=== PATIENT | female | born 1940 | race Hispanic/Latino ===

== ENCOUNTER → 2018-01-05 | Outpatient (CLI) | payer OTHER ==
[~2018-01-05] MED LIST: ASPI-555 PO; FURO20TA6 PO; GABA-531 PO; LEVO25TA54 PO; LOSA100T29 PO; METF500T6 PO; METO25TA6 PO; RIVA15TA PO; SIMV40TA5 PO
== END | disposition home or self-care (01) ==
LOC: SHCH 12:30
PROVIDERS: ATTEND Internal Medicine Cardiovascular Disease
DX: I10 Essential (primary) hypertension (principal)
CPT/HCPCS: 93306

== ENCOUNTER → 2018-01-06 | Outpatient (CLI) | payer OTHER ==
[~2018-01-06] MED LIST changes: +REGADENOSON 0.4 MG/5 ML PF SYG IVP ONE; +REGADENOSON 0.4 MG/5 ML PF SYG IVP SCH
== END | disposition home or self-care (01) ==
LOC: SHCH 07:57 → EDUNIT# 08:20
PROVIDERS: ATTEND Internal Medicine Cardiovascular Disease
DX: I20.9 Angina pectoris, unspecified (principal)
CPT/HCPCS: 78452; 93017; 96374; A9500 ×2; J2785 ×2

== ENCOUNTER 2018-01-12 05:51 | Day surgery (SDC) | payer OTHER ==
[2018-01-09 08:30] VITALS: BP 140/66
[2018-01-09 08:36] LABS: BASOPHILS % (AUTO) 1.1 % (0.0-5.0); EOSINOPHILS % (AUTO) 2.3 % (0.0-8.0); HEMATOCRIT 40.3 % (36-48); MEAN CORPUSCULAR HEMOGLOBIN 28.2 pg (27.0-33.0); MEAN CORPUSCULAR HGB CONC 33.3 g/dL (32.0-36.0); MEAN CORPUSCULAR VOLUME 84.8 fL (79-99); MONOCYTES % (AUTO) 11.2 % (3.0-13.0); NEUTROPHILS % (AUTO) 43.4 % (40.0-77.0); PLATELET COUNT (AUTO) 319 K/uL (130-400); RED BLOOD CELL COUNT(AUTO) 4.75 MIL/uL (4.00-5.50); RED CELL DISTRIBUTION WIDTH 14.2 % (11.0-15.5); WHITE BLOOD COUNT (AUTO) 7.1 K/uL (4.8-10.8)
[2018-01-09 08:41] LABS: APPEARANCE,URINE Cloudy (CLEAR); BILIRUBIN,URINE Negative (NEGATIVE); COLOR,URINE Yellow (YELLOW); GLUCOSE, URINE (UA) Negative (NEGATIVE); KETONES,URINE Negative (NEGATIVE); LEUKOCYTE ESTERASE ,URINE Large (NEGATIVE); NITRATE,URINE Negative (NEGATIVE); OCCULT BLOOD,URINE Trace (NEGATIVE); PH,URINE 7.5 (5.0-8.0); PROTEIN,URINE Trace (NEGATIVE)
[2018-01-09 08:44] LABS: CREATININE 0.9 mg/dL (0.5-1.5); POTASSIUM 4.5 mmol/L (3.5-5.1)
[2018-01-09 08:49] LABS: INR 1.11 (0.85-1.15); PARTIAL THROMBOPLASTIN TIME 31.8 SEC (26.3-35.5); PROTHROMBIN TIME 11.6 SEC (9.6-11.6)
[2018-01-09 09:13] LABS: BACTERIA,URINE Rare /HPF (None Seen); SQUAMOUS EPITHELIAL CELL,UR 0-2 /HPF (0-2); WBC,URINE >100 /HPF (0-1)
[~2018-01-12] VITALS: Ht 151.1 cm; Wt 63.7 kg
[2018-01-12] VITALS (8 sets, daily range): BP systolic 125–147; BP diastolic 56–71
[~2018-01-12 05:51] MED LIST changes: -REGADENOSON 0.4 MG/5 ML PF SYG IVP ONE; -REGADENOSON 0.4 MG/5 ML PF SYG IVP SCH
[2018-01-12] MEDS ORDERED: CEFTRIAXONE SODIUM 1 GM IV SCH (06:00)
[2018-01-12] MEDS ORDERED: SODIUM CHLORIDE 0.9% 1000ML 1,000 ML IV ONE (06:27)
[2018-01-12] MEDS ORDERED: ISOVUE-370 50ML VIAL IV ONE (10:15)
[2018-01-12] MEDS ORDERED: LIDOCAINE HCL 2% 20ML ONE (10:15)
[2018-01-12] MEDS ORDERED: IOPAMIDOL-370 100 ML VIAL IV ONE (10:15)
[2018-01-12] MEDS ORDERED: NITROGLYCERIN 5 MG/ML 10 ML VIAL IV ONE (10:15)
[2018-01-12] MEDS ORDERED: MEPERIDINE-PF 25 MG/ML SYG ONE (10:30)
[2018-01-12] MEDS ORDERED: MIDAZOLAM HCL 1 MG/ML 2ML VIAL ONE ×2 (10:30→11:26)
[2018-01-12] MEDS ORDERED: BUPIVACAINE/PF 0.25% 30ML VIAL IJ ONE (10:30)
[2018-01-12] MEDS ORDERED: CEFAZOLIN 1GM / D5W 50ML 150 ML ONE (10:30)
[2018-01-12] MEDS ORDERED: LIDOCAINE HCL 1% MDV 50ML VIAL ONE (10:31)
[2018-01-12] MEDS ORDERED: FENTANYL CITRATE PF 50 MCG/1 ML 2ML VIAL ONE (11:26)
[2018-01-12] MEDS ORDERED: SODIUM CHLORIDE 0.9% 1000ML 1,000 ML IV SCH (11:59)
[2018-01-12] MEDS ORDERED: NITROGLYCERIN 0.4 MG SL TAB SL PRN (12:00)
[2018-01-12] MEDS ORDERED: GLUCAGON 1MG KIT 1 MG ML IM PRN (12:00)
[2018-01-12] MEDS ORDERED: DEXTROSE 50%-WATER 50 ML DISP.SYRIN IV PRN (12:00)
[2018-01-12] MEDS ORDERED: METOPROLOL TARTRATE 1 MG/ML 5ML VIAL IV PRN (12:00)
[2018-01-12] MEDS ORDERED: INSULIN HUMULIN R 100 UNIT/ML 3ML SQ SCH (16:30)
== END 2018-01-12 16:08 | disposition home or self-care (01) ==
LOC: DAH 05:51
PROVIDERS: ATTEND Internal Medicine Cardiovascular Disease
DX: I25.119 Atherosclerotic heart disease of native coronary artery with unspecified angina pectoris (principal); I49.5 Sick sinus syndrome; Z79.01 Long term (current) use of anticoagulants; I11.0 Hypertensive heart disease with heart failure; I50.42 Chronic combined systolic (congestive) and diastolic (congestive) heart failure; Z86.73 Personal history of transient ischemic attack (TIA), and cerebral infarction without residual deficits; Z98.890 Other specified postprocedural states; Z90.710 Acquired absence of both cervix and uterus; Z95.0 Presence of cardiac pacemaker; I25.5 Ischemic cardiomyopathy; Z88.8 Allergy status to other drugs, medicaments and biological substances
CPT/HCPCS: 36415; 71045; 80048; 81001; 82948 ×2; 85025; 85610; 85730; 93005; 93458; A4606; C1760; C1894 ×2; J0690; J0696; J1644; J2175; J2250 ×2; J3010; J3490 ×4; J7030; Q9967 ×2; 99152; 99153

== ENCOUNTER 2018-06-21 11:30 | Inpatient (IN) | payer OTHER ==
[~2018-06-21] VITALS: Ht 142.2 cm; Wt 65.4 kg
[~2018-06-21 11:30] MED LIST changes: +LOSA100T20 PO; -LOSA100T29 PO; +METF-444 PO; -METF500T6 PO
[2018-06-21 12:45] LABS: BASOPHILS % (AUTO) 1.1 % (0.0-5.0); EOSINOPHILS % (AUTO) 1.5 % (0.0-8.0); HEMATOCRIT 40.1 % (36-48); LYMPHOCYTES % (AUTO) 26.9 % (21.0-51.0); MEAN CORPUSCULAR HEMOGLOBIN 27.5 pg (27.0-33.0); MEAN CORPUSCULAR HGB CONC 32.1 g/dL (32.0-36.0); MEAN CORPUSCULAR VOLUME 85.6 fL (79-99); MONOCYTES % (AUTO) 9.9 % (3.0-13.0); NEUTROPHILS % (AUTO) 60.6 % (40.0-77.0); PLATELET COUNT (AUTO) 241 K/uL (130-400); RED BLOOD CELL COUNT(AUTO) 4.68 MIL/uL (4.00-5.50); RED CELL DISTRIBUTION WIDTH 13.7 % (11.0-15.5); WHITE BLOOD COUNT (AUTO) 6.8 K/uL (4.8-10.8)
[2018-06-21] MEDS ORDERED: SODIUM CHLORIDE 0.9% 500ML 500 ML IV ONE (12:49)
[2018-06-21] MEDS ORDERED: AMPICILLIN SODIUM/SULBACTAM NA 1.5GM VIAL ONE ×2 (12:49→18:53)
[2018-06-21 13:10] LABS: ALBUMIN 3.3 g/dL (3.5-5.0); BILIRUBIN,DIRECT 0.1 mg/dL (0.0-0.3); BILIRUBIN,TOTAL 0.4 mg/dL (0.2-1.0); TOTAL PROTEIN, SERUM 7.6 g/dL (6.0-8.3)
[2018-06-21 13:14] LABS: APPEARANCE,URINE Cloudy (CLEAR); BILIRUBIN,URINE Negative (NEGATIVE); COLOR,URINE Yellow (YELLOW); GLUCOSE, URINE (UA) Negative (NEGATIVE); KETONES,URINE Negative (NEGATIVE); LEUKOCYTE ESTERASE ,URINE Small (NEGATIVE); NITRATE,URINE Negative (NEGATIVE); OCCULT BLOOD,URINE Negative (NEGATIVE); PH,URINE >=9.0 (5.0-8.0); PROTEIN,URINE Trace (NEGATIVE); UROBILINOGEN,URINE 0.2 mg/dL (0.2-1.0)
[2018-06-21 13:41] LABS: AMORPHOUS SEDIMENT,UR Moderate /LPF (None Seen); BACTERIA,URINE Rare /HPF (None Seen); RBC,URINE 0-1 /HPF (0-1); SQUAMOUS EPITHELIAL CELL,UR Rare /HPF (0-2); WBC,URINE 0-1 /HPF (0-1)
[2018-06-21] MEDS ORDERED: DEXAMETHASONE SOD PHOSPHATE 10MG/ML 1ML VIAL ONE (14:35)
[2018-06-21] MEDS ORDERED: KETOROLAC TROMETHAMINE 15MG/ML ONE (14:36)
[2018-06-21] MEDS: SODIUM CHLORIDE 0.9% 1000ML 1,000 ML IV SCH ×2 (15:07→22:22)
[2018-06-21] MEDS ORDERED: ACETAMINOPHEN 325 MG TAB PO PRN (15:15)
[2018-06-21] MEDS ORDERED: MORPHINE SULFATE 2 MG/ML 1ML SYG IV PRN (15:15)
[2018-06-21] MEDS ORDERED: ZOLPIDEM TARTRATE 5 MG TAB PO PRN (15:15)
[2018-06-21] MEDS ORDERED: ONDANSETRON HCL 4 MG/2 ML VIAL IV PRN (15:15)
[2018-06-21] MEDS ORDERED: SODIUM CHLORIDE 0.9% 1000ML 1,000 ML IV ONE (17:06)
[2018-06-21] MEDS: UNASYN 3GM+NS 100ML 100 ML IV SCH ×2 (18:00→23:52)
[2018-06-21] MEDS ORDERED: SODIUM CHLORIDE 0.9% 100 ML IV ONE (18:54)
[2018-06-21 20:44] VITALS: BP 166/79
[2018-06-21] MEDS ORDERED: FLUT1DIS3 IH (20:48)
[2018-06-21] MEDS ORDERED: FLUT15.88 NS (20:48)
[2018-06-21] MEDS ORDERED: DONE5TAB33 PO (20:48)
[2018-06-21] MEDS ORDERED: FLUTICASONE PROPIONATE 50MCG/SPRAY 16 GM BOTTLE NS PRN (21:15)
[2018-06-21 23:06] VITALS: BP 138/65
[2018-06-21] MEDS ORDERED: IPRATROPIUM/ALBUTEROL SULFATE 3 ML SOLUTION IH ONE (23:18)
[2018-06-22 03:08] VITALS: BP 148/68
[2018-06-22 03:50] LABS: HEMOGLOBIN A1C 6.3 % (4.0-6.0)
[2018-06-22 04:00] LABS: ALANINE AMINOTRANSFERASE 23 U/L (12-78); ALBUMIN 2.8 g/dL (3.5-5.0); ASPARTATE AMINOTRANSFERASE 22 U/L (10-37); BILIRUBIN,TOTAL 0.3 mg/dL (0.2-1.0); CARBON DIOXIDE 22 mmol/L (21-32); CHLORIDE 108 mmol/L (101-111); CREATINE KINASE, TOTAL 50 U/L (21-232); GLOMERULAR FILTR. RATE CALC 57 mL/min (>60); GLUCOSE,RANDOM 155 mg/dL (70-105); MYOGLOBIN 54 ng/mL (10-92); POTASSIUM 4.3 mmol/L (3.5-5.1); SODIUM SERUM 140 mmol/L (136-145); THYROID STIMULATING HORMONE 0.19 uIU/mL (0.36-3.74); TOTAL PROTEIN, SERUM 6.5 g/dL (6.0-8.3); TROPONIN I < 0.04 ng/mL (0.00-0.06); UREA NITROGEN, BLOOD 27 mg/dL (7-18)
[2018-06-22 04:04] LABS: HEMATOCRIT 37.3 % (36-48); MEAN CORPUSCULAR HEMOGLOBIN 27.2 pg (27.0-33.0); MEAN CORPUSCULAR HGB CONC 31.6 g/dL (32.0-36.0); PLATELET COUNT (AUTO) 172 K/uL (130-400); RED BLOOD CELL COUNT(AUTO) 4.33 MIL/uL (4.00-5.50); WHITE BLOOD COUNT (AUTO) 12.3 K/uL (4.8-10.8)
[2018-06-22] MEDS: SODIUM CHLORIDE 0.9% 1000ML 1,000 ML IV SCH ×3 (05:02→23:16)
[2018-06-22] MEDS: GUAIFENESIN-DM 200/20 MG 10 ML PO PRN ×2 (05:03→20:24)
[2018-06-22] MEDS: UNASYN 3GM+NS 100ML 100 ML IV SCH ×4 (05:03→23:25)
[2018-06-22] MEDS: IPRATROPIUM/ALBUTEROL SULFATE 3 ML SOLUTION IH PRN ×2 (06:06→19:45)
[2018-06-22] MEDS ORDERED: FLUTICASONE PROPIONATE 50MCG/SPRAY 16 GM BOTTLE NS PRN (06:35)
[2018-06-22] MEDS: LEVOTHYROXINE 25 MCG TABLET PO SCH (06:40)
[2018-06-22 07:00] VITALS: BP 142/62
[2018-06-22] MEDS: ASPIRIN 81MG TAB.CHEW PO SCH (08:14)
[2018-06-22] MEDS: PANTOPRAZOLE SODIUM 40 MG TABLET.DR PO SCH (08:14)
[2018-06-22] MEDS: LOSARTAN 100 MG TABLET PO SCH (08:14)
[2018-06-22] MEDS: METFORMIN HCL 500 MG TABLET PO SCH ×2 (08:14→16:52)
[2018-06-22] MEDS: FUROSEMIDE 20 MG TABLET PO SCH (08:14)
[2018-06-22] MEDS ORDERED: SALMETEROL IH SCH (09:00)
[2018-06-22] MEDS ORDERED: ENOXAPARIN SODIUM 40 MG/0.4 ML SYRINGE SQ SCH (09:00)
[2018-06-22] MEDS ORDERED: FLUTICASONE IH SCH (09:00)
[2018-06-22] MEDS ORDERED: PHARMACY COMMUNICATION MISC SCH (09:30)
[2018-06-22 11:00] VITALS: BP 135/64
[2018-06-22] MEDS: RIVAROXABAN 15 MG TABLET PO SCH (12:08)
[2018-06-22] MEDS ORDERED: VANCOMYCIN PROTOCOL PER PHARMACY IV SCH (13:30)
[2018-06-22] MEDS ORDERED: COMPOUND IV REFRIGERATED 1 EACH IVSOLN MISC PRN (13:45)
[2018-06-22] MEDS ORDERED: VANCOMYCIN 1.25 GM in SODIUM CHLORIDE 0.9% 250 ML IV ONE (14:00)
[2018-06-22 16:00] VITALS: BP 142/67
[2018-06-22 19:30] VITALS: BP 145/68
[2018-06-22] MEDS: ATORVASTATIN CALCIUM 20 MG TABLET PO SCH (20:24)
[2018-06-22] MEDS: GABAPENTIN 300 MG CAPSULE PO SCH (20:24)
[2018-06-22] MEDS: DONEPEZIL HCL 5 MG TAB PO SCH (20:24)
[2018-06-22 23:35] VITALS: BP 119/60
[2018-06-23 03:39] VITALS: BP 144/51
[2018-06-23 03:53] LABS: HEMATOCRIT 34.1 % (36-48); MEAN CORPUSCULAR HEMOGLOBIN 28.1 pg (27.0-33.0); MEAN CORPUSCULAR HGB CONC 32.9 g/dL (32.0-36.0); MEAN CORPUSCULAR VOLUME 85.3 fL (79-99); PLATELET COUNT (AUTO) 213 K/uL (130-400); RED CELL DISTRIBUTION WIDTH 13.9 % (11.0-15.5); WHITE BLOOD COUNT (AUTO) 10.7 K/uL (4.8-10.8)
[2018-06-23 03:55] LABS: CARBON DIOXIDE 24 mmol/L (21-32); CHLORIDE 108 mmol/L (101-111); GLOMERULAR FILTR. RATE CALC 57 mL/min (>60); GLUCOSE,RANDOM 107 mg/dL (70-105); POTASSIUM 3.9 mmol/L (3.5-5.1); SODIUM SERUM 143 mmol/L (136-145); UREA NITROGEN, BLOOD 24 mg/dL (7-18)
[2018-06-23 03:56] LABS: CRP QUANTITATIVE < 2.00 mg/L (0.00-9.0)
[2018-06-23] MEDS: UNASYN 3GM+NS 100ML 100 ML IV SCH ×3 (05:00→17:05)
[2018-06-23] MEDS: LEVOTHYROXINE 25 MCG TABLET PO SCH (05:50)
[2018-06-23] MEDS: SODIUM CHLORIDE 0.9% 1000ML 1,000 ML IV SCH ×3 (05:50→23:07)
[2018-06-23 07:00] VITALS: BP 124/63
[2018-06-23] MEDS: ASPIRIN 81MG TAB.CHEW PO SCH (09:09)
[2018-06-23] MEDS: METFORMIN HCL 500 MG TABLET PO SCH ×2 (09:09→17:05)
[2018-06-23] MEDS: RIVAROXABAN 15 MG TABLET PO SCH (09:09)
[2018-06-23] MEDS: LOSARTAN 100 MG TABLET PO SCH (09:09)
[2018-06-23] MEDS: FUROSEMIDE 20 MG TABLET PO SCH (09:09)
[2018-06-23] MEDS: PANTOPRAZOLE SODIUM 40 MG TABLET.DR PO SCH (09:09)
[2018-06-23 11:00] VITALS: BP 158/69
[2018-06-23] MEDS: VANCOMYCIN 750MG + NS 250 ML IV SCH ×2 (13:37)
[2018-06-23 16:00] VITALS: BP 158/68
[2018-06-23 19:26] VITALS: BP 138/74
[2018-06-23] MEDS: DONEPEZIL HCL 5 MG TAB PO SCH (20:28)
[2018-06-23] MEDS: GABAPENTIN 300 MG CAPSULE PO SCH (20:28)
[2018-06-23] MEDS: ATORVASTATIN CALCIUM 20 MG TABLET PO SCH (20:28)
[2018-06-23] MEDS: METOPROLOL TARTRATE 25 MG TAB PO SCH (20:28)
[2018-06-23 23:51] VITALS: BP 140/65
[2018-06-24] MEDS: UNASYN 3GM+NS 100ML 100 ML IV SCH ×3 (00:04→12:33)
[2018-06-24 03:35] VITALS: BP 131/66
[2018-06-24] MEDS: PANTOPRAZOLE SODIUM 40 MG TABLET.DR PO SCH ×2 (06:02→09:41)
[2018-06-24] MEDS: LEVOTHYROXINE 25 MCG TABLET PO SCH (06:02)
[2018-06-24 07:00] VITALS: BP 146/71
[2018-06-24] MEDS: METFORMIN HCL 500 MG TABLET PO SCH (08:33)
[2018-06-24] MEDS: METOPROLOL TARTRATE 25 MG TAB PO SCH (09:41)
[2018-06-24] MEDS: LOSARTAN 100 MG TABLET PO SCH (09:41)
[2018-06-24] MEDS: FUROSEMIDE 20 MG TABLET PO SCH (09:41)
[2018-06-24] MEDS: RIVAROXABAN 15 MG TABLET PO SCH (09:41)
[2018-06-24 11:00] VITALS: BP 136/76
[2018-06-24] MEDS: VANCOMYCIN 750MG + NS 250 ML IV SCH ×2 (14:43)
[2018-06-25] MEDS ORDERED: VANCOMYCIN 1GM+NS 250ML 250 ML IV SCH (14:00)
== END 2018-06-24 16:38 | DRG 603 ==
LOC: EDH 11:30 → EDHIP 15:07 → OBSVTOIN 15:07 → 2AH 20:24
PROVIDERS: ADMIT Internal Medicine; ATTEND Internal Medicine
PROC: 4B02XSZ Measurement of Cardiac Pacemaker, External Approach (ICD-10-PCS; principal; 2018-06-23)
DX: L03.211 Cellulitis of face (principal); D68.59 Other primary thrombophilia; E44.0 Moderate protein-calorie malnutrition; I42.9 Cardiomyopathy, unspecified; I69.954 Hemiplegia and hemiparesis following unspecified cerebrovascular disease affecting left non-dominant side; I48.0 Paroxysmal atrial fibrillation; E11.9 Type 2 diabetes mellitus without complications; I10 Essential (primary) hypertension; E78.2 Mixed hyperlipidemia; W18.30XA Fall on same level, unspecified, initial encounter; E89.0 Postprocedural hypothyroidism; J45.909 Unspecified asthma, uncomplicated; W57.XXXA Bitten or stung by nonvenomous insect and other nonvenomous arthropods, initial encounter; Z95.0 Presence of cardiac pacemaker; Z86.711 Personal history of pulmonary embolism; Z86.718 Personal history of other venous thrombosis and embolism; Z79.01 Long term (current) use of anticoagulants; Z90.710 Acquired absence of both cervix and uterus; Z68.32 Body mass index [BMI] 32.0-32.9, adult; Z88.8 Allergy status to other drugs, medicaments and biological substances; Y93.89 Activity, other specified; Y92.098 Other place in other non-institutional residence as the place of occurrence of the external cause; Y99.8 Other external cause status; Z82.3 Family history of stroke; Z82.49 Family history of ischemic heart disease and other diseases of the circulatory system; Z82.0 Family history of epilepsy and other diseases of the nervous system
CPT/HCPCS: 36415; 70450; 71045; 80048; 80053; 80076; 80202; 80339; 81001; 82550; 82948; 83036; 83605; 83874; 84443; 84484; 85025; 85027; 86140; 87040; 93005; 93306; 93880; 94640; 94664; 97039; A6250; J0295; J1100; J1650; J1885; J3370; J7030; J7040

== ENCOUNTER 2019-09-10 14:49 | Emergency (ER) | payer OTHER ==
[~2019-09-10 14:49] MED LIST changes: +AMLO5TAB9 PO; +DONE5TAB33 PO; +FLUT15.845 NS; +FLUT1DIS3 IH; -LOSA100T20 PO; +MELA10TA PO; +SIMV-46 PO; -SIMV40TA5 PO
[2019-09-10 15:15] LABS: APPEARANCE,URINE CLOUDY (CLEAR); BILIRUBIN,URINE SMALL (NEGATIVE); COLOR,URINE YELLOW (YELLOW); GLUCOSE, URINE (UA) NEGATIVE (NEGATIVE); KETONES,URINE 15 mg/dL (NEGATIVE); LEUKOCYTE ESTERASE ,URINE TRACE (NEGATIVE); NITRATE,URINE NEGATIVE (NEGATIVE); OCCULT BLOOD,URINE LARGE (NEGATIVE); PROTEIN,URINE >=300 mg/dL (NEGATIVE)
[2019-09-10 15:28] LABS: BASOPHILS % (AUTO) 0.6 % (0.0-5.0); EOSINOPHILS % (AUTO) 1.3 % (0.0-8.0); HEMATOCRIT 42.1 % (36-48); LYMPHOCYTES % (AUTO) 34.3 % (21.0-51.0); MEAN CORPUSCULAR HEMOGLOBIN 27.8 pg (27.0-33.0); MEAN CORPUSCULAR HGB CONC 32.1 g/dL (32.0-36.0); MEAN CORPUSCULAR VOLUME 86.8 fL (79-99); MONOCYTES % (AUTO) 9.5 % (3.0-13.0); NEUTROPHILS % (AUTO) 54.2 % (40.0-77.0); PLATELET COUNT (AUTO) 280 K/uL (130-400); RED BLOOD CELL COUNT(AUTO) 4.85 MIL/uL (4.00-5.50); RED CELL DISTRIBUTION WIDTH 13.7 % (11.0-15.5); WHITE BLOOD COUNT (AUTO) 9.1 K/uL (4.8-10.8)
[2019-09-10] MEDS ORDERED: SODIUM CHLORIDE 0.9% 1000ML 1,000 ML IV ONE (15:29)
[2019-09-10] MEDS ORDERED: MORPHINE SULFATE 2 MG/ML 1ML SYG ONE (15:29)
[2019-09-10] MEDS ORDERED: ONDANSETRON HCL 4 MG/2 ML VIAL ONE (15:29)
[2019-09-10 15:40] LABS: INR 1.15 (0.85-1.15); PARTIAL THROMBOPLASTIN TIME 31.5 SEC (26.3-35.5); POTASSIUM 4.5 mmol/L (3.5-5.1)
[2019-09-10 15:44] LABS: ALBUMIN 3.4 g/dL (3.5-5.0); BILIRUBIN,TOTAL 0.4 mg/dL (0.2-1.0); TOTAL PROTEIN, SERUM 7.7 g/dL (6.0-8.3)
[2019-09-10 15:46] LABS: BACTERIA,URINE Few /HPF (None Seen)
[2019-09-10] MEDS ORDERED: IOHEXOL-350 75 ML VIAL IV ONE (15:48)
== END 2019-09-10 19:18 | disposition home or self-care (01) ==
LOC: EDH 14:49
DX: N39.0 Urinary tract infection, site not specified (principal); K57.90 Diverticulosis of intestine, part unspecified, without perforation or abscess without bleeding; R10.30 Lower abdominal pain, unspecified; E11.9 Type 2 diabetes mellitus without complications; I10 Essential (primary) hypertension; E78.5 Hyperlipidemia, unspecified; Z90.49 Acquired absence of other specified parts of digestive tract; Z90.710 Acquired absence of both cervix and uterus; Z98.890 Other specified postprocedural states; Z88.2 Allergy status to sulfonamides
CPT/HCPCS: 36415; 74177; 80053; 81001; 83605; 85025; 85610; 85730; 87040; 96374; 96375; 99285; J2405; J7030; Q9967

== ENCOUNTER 2019-10-12 12:14 | Emergency (ER) | payer OTHER ==
[2019-10-12 12:49] LABS: APPEARANCE,URINE Clear (CLEAR); BASOPHILS % (AUTO) 0.7 % (0.0-5.0); BILIRUBIN,URINE Negative (NEGATIVE); COLOR,URINE Yellow (YELLOW); GLUCOSE, URINE (UA) Negative (NEGATIVE); HEMATOCRIT 40.1 % (36-48); KETONES,URINE Negative (NEGATIVE); LEUKOCYTE ESTERASE ,URINE Negative (NEGATIVE); LYMPHOCYTES % (AUTO) 32.2 % (21.0-51.0); MEAN CORPUSCULAR HEMOGLOBIN 27.9 pg (27.0-33.0); MEAN CORPUSCULAR HGB CONC 31.9 g/dL (32.0-36.0); MEAN CORPUSCULAR VOLUME 87.4 fL (79-99); MONOCYTES % (AUTO) 10.6 % (3.0-13.0); NEUTROPHILS % (AUTO) 54.2 % (40.0-77.0); NITRATE,URINE Negative (NEGATIVE); OCCULT BLOOD,URINE Trace (NEGATIVE); PH,URINE 5.5 (5.0-8.0); PLATELET COUNT (AUTO) 298 K/uL (130-400); PROTEIN,URINE Negative (NEGATIVE); RED BLOOD CELL COUNT(AUTO) 4.59 MIL/uL (4.00-5.50); RED CELL DISTRIBUTION WIDTH 14.2 % (11.0-15.5); UROBILINOGEN,URINE 0.2 mg/dL (0.2-1.0); WHITE BLOOD COUNT (AUTO) 9.4 K/uL (4.8-10.8)
[2019-10-12 12:58] LABS: CREATININE 0.9 mg/dL (0.5-1.5)
[2019-10-12 13:02] LABS: ALBUMIN 3.3 g/dL (3.5-5.0); BILIRUBIN,TOTAL 0.4 mg/dL (0.2-1.0); TOTAL PROTEIN, SERUM 7.5 g/dL (6.0-8.3)
[2019-10-12 13:31] LABS: BACTERIA,URINE Rare /HPF (None Seen); RBC,URINE 0-1 /HPF (0-1); WBC,URINE 0-1 /HPF (0-1)
[2019-10-12 13:32] LABS: SQUAMOUS EPITHELIAL CELL,UR 0-2 /HPF (0-2)
[2019-10-12] MEDS ORDERED: SODIUM CHLORIDE 0.9% 1000ML 1,000 ML IV ONE (14:14)
== END 2019-10-12 17:14 | disposition home or self-care (01) ==
LOC: EDH 12:14
DX: A08.4 Viral intestinal infection, unspecified (principal); E86.0 Dehydration; E11.9 Type 2 diabetes mellitus without complications; E78.5 Hyperlipidemia, unspecified; I10 Essential (primary) hypertension; Z90.710 Acquired absence of both cervix and uterus; Z88.8 Allergy status to other drugs, medicaments and biological substances
CPT/HCPCS: 36415; 80053; 81001; 85025; 96360; 96361; 99285; J7030

== ENCOUNTER 2020-06-12 10:41 | Observation (INO) | payer OTHER ==
[~2020-06-12] VITALS: Ht 142.2 cm; Wt 47.1 kg
[~2020-06-12 10:41] MED LIST changes: -AMLO5TAB9 PO; -ASPI-555 PO; -FURO20TA6 PO; -GABA-531 PO; -METO25TA6 PO
[2020-06-12] MEDS ORDERED: DIAZEPAM 5 MG/ML 2 ML SYG ONE (11:30)
[2020-06-12] MEDS ORDERED: ASPIRIN 325 MG TABLET ONE (11:30)
[2020-06-12 11:36] LABS: BASOPHILS % (AUTO) 0.9 % (0.0-5.0); EOSINOPHILS % (AUTO) 1.8 % (0.0-8.0); HEMATOCRIT 40.7 % (36-48); LYMPHOCYTES % (AUTO) 28.5 % (21.0-51.0); MEAN CORPUSCULAR HEMOGLOBIN 28.4 pg (27.0-33.0); MEAN CORPUSCULAR HGB CONC 32.7 g/dL (32.0-36.0); MEAN CORPUSCULAR VOLUME 86.8 fL (79-99); MONOCYTES % (AUTO) 9.6 % (3.0-13.0); NEUTROPHILS % (AUTO) 59.1 % (40.0-77.0); PLATELET COUNT (AUTO) 355 K/uL (130-400); RED BLOOD CELL COUNT(AUTO) 4.69 MIL/uL (4.00-5.50); WHITE BLOOD COUNT (AUTO) 8.5 K/uL (4.8-10.8)
[2020-06-12 11:45] LABS: CREATININE 0.8 mg/dL (0.5-1.5); POTASSIUM 4.6 mmol/L (3.5-5.1)
[2020-06-12 11:49] LABS: INR 1.44 (0.85-1.15); PARTIAL THROMBOPLASTIN TIME 36.9 SEC (26.3-35.5); PROTHROMBIN TIME 15.3 SEC (9.6-11.6)
[2020-06-12 11:50] LABS: ALBUMIN 3.2 g/dL (3.5-5.0); BILIRUBIN,TOTAL 0.4 mg/dL (0.2-1.0); TOTAL PROTEIN, SERUM 7.5 g/dL (6.0-8.3)
[2020-06-12 12:44] LABS: B-TYPE NATRIURETIC PEPTIDE 100 pg/mL (0-100)
[2020-06-12] MEDS ORDERED: GABAPENTIN 100 MG CAPSULE ONE ×2 (16:37→23:44)
[2020-06-12] MEDS ORDERED: CYCLOBENZAPRINE HCL 10 MG TABLET ONE ×2 (16:38→23:45)
[2020-06-12] MEDS ORDERED: NITROGLYCERIN 0.4 MG SL TAB SL PRN (17:00)
[2020-06-12] MEDS ORDERED: LACTULOSE 20 GM/30 ML UDCUP PO PRN (17:00)
[2020-06-12] MEDS ORDERED: ONDANSETRON HCL 4 MG/2 ML VIAL IV PRN (17:00)
[2020-06-12] MEDS ORDERED: ACETAMINOPHEN 325 MG TAB PO PRN (17:00)
[2020-06-12] MEDS: CEFTRIAXONE SODIUM 1 GM IV SCH (17:00)
[2020-06-12] MEDS ORDERED: HYDROCODONE/ACETAMINOPHEN 5/325 MG TAB PO PRN (17:00)
[2020-06-12] MEDS ORDERED: CEFTRIAXONE SODIUM 1 GM ONE (17:38)
[2020-06-12] MEDS ORDERED: SODIUM CHLORIDE 0.9% 50 ML IV ONE (17:38)
[2020-06-12 17:52] LABS: APPEARANCE,URINE Clear (CLEAR); BILIRUBIN,URINE Negative (NEGATIVE); COLOR,URINE Yellow (YELLOW); GLUCOSE, URINE (UA) Negative (NEGATIVE); KETONES,URINE Negative (NEGATIVE); LEUKOCYTE ESTERASE ,URINE Negative (NEGATIVE); NITRATE,URINE Negative (NEGATIVE); OCCULT BLOOD,URINE Negative (NEGATIVE); PROTEIN,URINE Negative (NEGATIVE); UROBILINOGEN,URINE 0.2 mg/dL (0.2-1.0)
[2020-06-12] MEDS ORDERED: FAMOTIDINE 20MG TAB 20 MG TAB ONE (20:50)
[2020-06-12] MEDS ORDERED: HYDROCODONE/ACETAMINOPHEN 10/325 MG TAB ONE (20:51)
[2020-06-12] MEDS: GABAPENTIN 100 MG CAPSULE PO SCH (21:00)
[2020-06-12] MEDS: CYCLOBENZAPRINE HCL 10 MG TABLET PO SCH (21:00)
[2020-06-12] MEDS: FAMOTIDINE 20MG TAB 20 MG TAB PO SCH (21:00)
[2020-06-13] MEDS ORDERED: LORAZEPAM 2 MG/ML 1 ML VIAL ONE (03:04)
[2020-06-13 05:06] LABS: BASOPHILS % (AUTO) 0.7 % (0.0-5.0); HEMATOCRIT 40.7 % (36-48); LYMPHOCYTES % (AUTO) 40.9 % (21.0-51.0); MEAN CORPUSCULAR HEMOGLOBIN 28.2 pg (27.0-33.0); MEAN CORPUSCULAR HGB CONC 32.7 g/dL (32.0-36.0); MEAN CORPUSCULAR VOLUME 86.4 fL (79-99); NEUTROPHILS % (AUTO) 46.2 % (40.0-77.0); PLATELET COUNT (AUTO) 343 K/uL (130-400); RED BLOOD CELL COUNT(AUTO) 4.71 MIL/uL (4.00-5.50); RED CELL DISTRIBUTION WIDTH 12.6 % (11.0-15.5); WHITE BLOOD COUNT (AUTO) 8.9 K/uL (4.8-10.8)
[2020-06-13 05:28] LABS: ALBUMIN 2.8 g/dL (3.5-5.0); BILIRUBIN,TOTAL 0.5 mg/dL (0.2-1.0); CREATININE 0.9 mg/dL (0.5-1.5); POTASSIUM 4.2 mmol/L (3.5-5.1); TOTAL PROTEIN, SERUM 6.9 g/dL (6.0-8.3)
[2020-06-13] MEDS: CYCLOBENZAPRINE HCL 10 MG TABLET PO SCH ×3 (09:00→20:12)
[2020-06-13] MEDS: FAMOTIDINE 20MG TAB 20 MG TAB PO SCH ×2 (09:00→20:14)
[2020-06-13] MEDS: GABAPENTIN 100 MG CAPSULE PO SCH ×3 (09:00→20:12)
[2020-06-13] MEDS: ENOXAPARIN SODIUM 30 MG/0.3 ML SQ SCH (09:00)
[2020-06-13] MEDS ORDERED: GABAPENTIN 100 MG CAPSULE ONE (09:35)
[2020-06-13] MEDS ORDERED: FAMOTIDINE 20MG TAB 20 MG TAB ONE (09:35)
[2020-06-13] MEDS ORDERED: ONDANSETRON HCL 4 MG/2 ML VIAL ONE (09:35)
[2020-06-13] MEDS ORDERED: CYCLOBENZAPRINE HCL 10 MG TABLET ONE (09:36)
[2020-06-13] MEDS ORDERED: ENOXAPARIN SODIUM 30 MG/0.3 ML SQ ONE (09:36)
[2020-06-13] MEDS ORDERED: CEFTAZIDIME PENTAHYDRATE 1 GM/VIAL ONE (12:36)
[2020-06-13] MEDS ORDERED: INSULIN HUMULIN R 100 UNIT/ML 3ML ONE (12:37)
[2020-06-13 15:54] VITALS: BP 131/70
[2020-06-13] MEDS ORDERED: DONE5TAB33 PO (16:47)
[2020-06-13] MEDS: CEFTRIAXONE SODIUM 1 GM IV SCH (17:16)
[2020-06-13] MEDS: TRAMADOL HCL 50 MG TABLET PO PRN (17:17)
[2020-06-13 20:00] VITALS: BP 134/64
[2020-06-13] MEDS ORDERED: DIPHENHYDRAMINE HCL 25 MG CAPSULE PO SCH (21:45)
[2020-06-14] VITALS (7 sets, daily range): BP systolic 111–152; BP diastolic 61–85
[2020-06-14 05:46] LABS: BASOPHILS % (AUTO) 0.9 % (0.0-5.0); HEMATOCRIT 39.6 % (36-48); LYMPHOCYTES % (AUTO) 33.3 % (21.0-51.0); MEAN CORPUSCULAR HEMOGLOBIN 28.5 pg (27.0-33.0); MEAN CORPUSCULAR HGB CONC 32.6 g/dL (32.0-36.0); MEAN CORPUSCULAR VOLUME 87.6 fL (79-99); MONOCYTES % (AUTO) 12.7 % (3.0-13.0); PLATELET COUNT (AUTO) 325 K/uL (130-400); RED BLOOD CELL COUNT(AUTO) 4.52 MIL/uL (4.00-5.50); RED CELL DISTRIBUTION WIDTH 12.7 % (11.0-15.5)
[2020-06-14 06:25] LABS: ALBUMIN 2.8 g/dL (3.5-5.0); BILIRUBIN,TOTAL 0.4 mg/dL (0.2-1.0); POTASSIUM 4.5 mmol/L (3.5-5.1); TOTAL PROTEIN, SERUM 6.7 g/dL (6.0-8.3)
[2020-06-14] MEDS: CYCLOBENZAPRINE HCL 10 MG TABLET PO SCH ×3 (10:13→20:44)
[2020-06-14] MEDS: GABAPENTIN 100 MG CAPSULE PO SCH ×3 (10:13→20:44)
[2020-06-14] MEDS: FAMOTIDINE 20MG TAB 20 MG TAB PO SCH ×2 (10:13→20:44)
[2020-06-14] MEDS: ENOXAPARIN SODIUM 30 MG/0.3 ML SQ SCH (10:13)
[2020-06-14] MEDS: HYDROCODONE/ACETAMINOPHEN 5/325 MG TAB PO PRN ×3 (10:13→20:45)
[2020-06-14] MEDS: CEFTRIAXONE SODIUM 1 GM IV SCH (16:31)
[2020-06-14] MEDS: TRAMADOL HCL 50 MG TABLET PO PRN (23:39)
[2020-06-15 04:00] VITALS: BP 131/66
[2020-06-15 05:22] LABS: BASOPHILS % (AUTO) 0.7 % (0.0-5.0); EOSINOPHILS % (AUTO) 3.6 % (0.0-8.0); HEMATOCRIT 40.5 % (36-48); MEAN CORPUSCULAR HGB CONC 32.1 g/dL (32.0-36.0); MEAN CORPUSCULAR VOLUME 87.1 fL (79-99); MONOCYTES % (AUTO) 12.2 % (3.0-13.0); NEUTROPHILS % (AUTO) 39.4 % (40.0-77.0); PLATELET COUNT (AUTO) 316 K/uL (130-400); RED BLOOD CELL COUNT(AUTO) 4.65 MIL/uL (4.00-5.50); RED CELL DISTRIBUTION WIDTH 12.7 % (11.0-15.5); WHITE BLOOD COUNT (AUTO) 7.2 K/uL (4.8-10.8)
[2020-06-15 05:40] LABS: ALBUMIN 2.8 g/dL (3.5-5.0); BILIRUBIN,TOTAL 0.3 mg/dL (0.2-1.0); CREATININE 0.8 mg/dL (0.5-1.5); POTASSIUM 4.1 mmol/L (3.5-5.1); TOTAL PROTEIN, SERUM 6.7 g/dL (6.0-8.3)
[2020-06-15 07:53] VITALS: BP 136/73
[2020-06-15] MEDS: CYCLOBENZAPRINE HCL 10 MG TABLET PO SCH ×4 (09:05→20:52)
[2020-06-15] MEDS: ENOXAPARIN SODIUM 30 MG/0.3 ML SQ SCH (09:05)
[2020-06-15] MEDS: GABAPENTIN 100 MG CAPSULE PO SCH ×4 (09:05→20:53)
[2020-06-15] MEDS: FAMOTIDINE 20MG TAB 20 MG TAB PO SCH ×3 (09:05→20:53)
[2020-06-15] MEDS ORDERED: MORPHINE SULFATE 2 MG/ML 1ML SYG IM PRN (10:00)
[2020-06-15 11:00] VITALS: BP 131/84
[2020-06-15 16:00] VITALS: BP 156/84
[2020-06-15] MEDS: CEFTRIAXONE SODIUM 1 GM IV SCH (17:15)
[2020-06-15 20:00] VITALS: BP 138/78
[2020-06-15] MEDS: TRAMADOL HCL 50 MG TABLET PO PRN (22:50)
[2020-06-15 23:54] VITALS: BP 133/73
[2020-06-16 04:00] VITALS: BP 128/73
[2020-06-16 05:12] LABS: BASOPHILS % (AUTO) 0.6 % (0.0-5.0); EOSINOPHILS % (AUTO) 3.5 % (0.0-8.0); HEMATOCRIT 37.9 % (36-48); LYMPHOCYTES % (AUTO) 38.1 % (21.0-51.0); MEAN CORPUSCULAR HEMOGLOBIN 28.5 pg (27.0-33.0); MEAN CORPUSCULAR HGB CONC 32.5 g/dL (32.0-36.0); MEAN CORPUSCULAR VOLUME 87.7 fL (79-99); MONOCYTES % (AUTO) 12.8 % (3.0-13.0); NEUTROPHILS % (AUTO) 44.9 % (40.0-77.0); PLATELET COUNT (AUTO) 295 K/uL (130-400); RED BLOOD CELL COUNT(AUTO) 4.32 MIL/uL (4.00-5.50); RED CELL DISTRIBUTION WIDTH 12.8 % (11.0-15.5); WHITE BLOOD COUNT (AUTO) 7.9 K/uL (4.8-10.8)
[2020-06-16 05:41] LABS: ALBUMIN 2.8 g/dL (3.5-5.0); BILIRUBIN,TOTAL 0.3 mg/dL (0.2-1.0); CREATININE 0.8 mg/dL (0.5-1.5); POTASSIUM 4.2 mmol/L (3.5-5.1); TOTAL PROTEIN, SERUM 6.6 g/dL (6.0-8.3)
[2020-06-16 08:00] VITALS: BP 130/75
[2020-06-16] MEDS: GABAPENTIN 100 MG CAPSULE PO SCH (08:06)
[2020-06-16] MEDS: CYCLOBENZAPRINE HCL 10 MG TABLET PO SCH (08:06)
[2020-06-16] MEDS: FAMOTIDINE 20MG TAB 20 MG TAB PO SCH (08:06)
[2020-06-16] MEDS: ENOXAPARIN SODIUM 30 MG/0.3 ML SQ SCH (08:07)
[2020-06-16 11:00] VITALS: BP 149/73
[2020-06-16 15:54] VITALS: BP 162/77
[2020-06-16] MEDS: CEFTRIAXONE SODIUM 1 GM IV SCH (17:00)
== END 2020-06-16 18:15 ==
LOC: EDH 10:41 → OBSVTOIN 16:49 → EDHIP 16:49 → INTOOBSV 16:49 → 3DH 06-13 15:44 → 3CH 06-16 10:39
PROVIDERS: ADMIT Family Medicine; ATTEND Family Medicine
DX: M47.26 Other spondylosis with radiculopathy, lumbar region (principal); N39.0 Urinary tract infection, site not specified; E78.5 Hyperlipidemia, unspecified; I10 Essential (primary) hypertension; E11.40 Type 2 diabetes mellitus with diabetic neuropathy, unspecified; M54.30 Sciatica, unspecified side; R26.2 Difficulty in walking, not elsewhere classified; M79.604 Pain in right leg; Z60.2 Problems related to living alone; Z20.828 Contact with and (suspected) exposure to other viral communicable diseases; Z95.0 Presence of cardiac pacemaker; Z88.8 Allergy status to other drugs, medicaments and biological substances; Z90.710 Acquired absence of both cervix and uterus; Z82.3 Family history of stroke; Z82.49 Family history of ischemic heart disease and other diseases of the circulatory system; Z82.5 Family history of asthma and other chronic lower respiratory diseases; Z82.0 Family history of epilepsy and other diseases of the nervous system
CPT/HCPCS: 36415 ×5; 71045; 72131; 73502; 73560 ×2; 80053 ×5; 81003; 82550; 82948 ×13; 83880; 84484; 85025 ×5; 85610; 85730; 87088; 87426; 93005; 93970; 97039 ×2; 97161; 97530 ×2; 99285; G0378 ×97; G8978; G8979; G8980; G8981; G8982; G8983; J0696 ×4; J0713; J1650 ×4; J1815; J2060; J2405; J3360; Q0163

== ENCOUNTER 2020-11-28 12:38 | Observation (INO) | payer MEDICARE, OTHER ==
[~2020-11-28] VITALS: Ht 139.7 cm; Wt 69.9 kg
[2020-11-28 13:24] LABS: EOSINOPHILS % (AUTO) 2.4 % (0.0-8.0); HEMATOCRIT 39.6 % (36-48); LYMPHOCYTES % (AUTO) 33.7 % (21.0-51.0); MEAN CORPUSCULAR HGB CONC 32.1 g/dL (32.0-36.0); MEAN CORPUSCULAR VOLUME 87.2 fL (79-99); MONOCYTES % (AUTO) 8.8 % (3.0-13.0); NEUTROPHILS % (AUTO) 53.8 % (40.0-77.0); PLATELET COUNT (AUTO) 256 K/uL (130-400); RED BLOOD CELL COUNT(AUTO) 4.54 MIL/uL (4.00-5.50); RED CELL DISTRIBUTION WIDTH 14.3 % (11.0-15.5); WHITE BLOOD COUNT (AUTO) 7.8 K/uL (4.8-10.8)
[2020-11-28 13:33] LABS: POTASSIUM 5.3 mmol/L (3.5-5.1)
[2020-11-28 14:19] LABS: ALBUMIN 3.3 g/dL (3.5-5.0); BILIRUBIN,TOTAL 0.5 mg/dL (0.2-1.0)
[2020-11-28] MEDS ORDERED: ASPIRIN 325 MG TABLET ONE (14:39)
[2020-11-28] MEDS: NITROGLYCERIN 1GM OINT 1 INCH/1GM TD SCH (16:00)
[2020-11-28] MEDS ORDERED: ACETAMINOPHEN 325 MG TAB PO PRN ×2 (16:00)
[2020-11-28] MEDS ORDERED: LACTULOSE 20 GM/30 ML UDCUP PO PRN (16:00)
[2020-11-28] MEDS ORDERED: ONDANSETRON 4MG INJ IV PRN (16:00)
[2020-11-28] MEDS ORDERED: NITROGLYCERIN 1GM OINT 1 INCH/1GM TD ONE (16:40)
[2020-11-28 17:05] LABS: HEMOGLOBIN A1C 6.3 % (4.0-6.0)
[2020-11-28 17:21] LABS: THYROID STIMULATING HORMONE 0.44 uIU/mL (0.36-3.74)
[2020-11-28] MEDS ORDERED: ACETAMINOPHEN 325 MG TAB ONE (18:34)
[2020-11-28] MEDS: INSULIN HUMULIN R 100 UNIT/ML 3ML SQ SCH (21:00)
[2020-11-28] MEDS: METOPROLOL TARTRATE 25 MG TAB PO SCH (21:00)
[2020-11-28] MEDS ORDERED: ATORVASTATIN 20 MG TABLET PO SCH (21:00)
[2020-11-28] MEDS ORDERED: FAMOTIDINE 20MG TAB ONE (21:52)
[2020-11-28] MEDS ORDERED: ATORVASTATIN 20 MG TABLET ONE (21:52)
[2020-11-28] MEDS ORDERED: METOPROLOL TARTRATE 25 MG TAB ONE (21:53)
[2020-11-28 22:33] VITALS: BP 179/90
[2020-11-28 23:52] VITALS: BP 127/69
[2020-11-29] MEDS: NITROGLYCERIN 1GM OINT 1 INCH/1GM TD SCH ×2 (00:11→10:20)
[2020-11-29 03:42] VITALS: BP 134/62
[2020-11-29 05:23] LABS: BASOPHILS % (AUTO) 0.9 % (0.0-5.0); EOSINOPHILS % (AUTO) 3.4 % (0.0-8.0); HEMATOCRIT 37.2 % (36-48); LYMPHOCYTES % (AUTO) 38.9 % (21.0-51.0); MEAN CORPUSCULAR HEMOGLOBIN 27.9 pg (27.0-33.0); MEAN CORPUSCULAR VOLUME 87.1 fL (79-99); MONOCYTES % (AUTO) 10.5 % (3.0-13.0); NEUTROPHILS % (AUTO) 46.2 % (40.0-77.0); PLATELET COUNT (AUTO) 254 K/uL (130-400); RED BLOOD CELL COUNT(AUTO) 4.27 MIL/uL (4.00-5.50); RED CELL DISTRIBUTION WIDTH 14.2 % (11.0-15.5); WHITE BLOOD COUNT (AUTO) 8.1 K/uL (4.8-10.8)
[2020-11-29 05:30] LABS: CREATININE 0.9 mg/dL (0.5-1.5); POTASSIUM 4.2 mmol/L (3.5-5.1)
[2020-11-29] MEDS: INSULIN HUMULIN R 100 UNIT/ML 3ML SQ SCH ×2 (06:20→11:30)
[2020-11-29] MEDS ORDERED: METO25 PO (07:49)
[2020-11-29 08:14] VITALS: BP 147/75
[2020-11-29] MEDS ORDERED: ASPIRIN 325 MG TABLET PO SCH (09:00)
[2020-11-29] MEDS ORDERED: LOSARTAN 50 MG TABLET PO SCH (09:00)
[2020-11-29] MEDS ORDERED: FAMOTIDINE 20MG TAB PO SCH (09:00)
[2020-11-29] MEDS ORDERED: ASPIRIN 81MG CHEW TAB ONE (09:37)
[2020-11-29] MEDS: METOPROLOL TARTRATE 25 MG TAB PO SCH (10:06)
[2020-11-29 11:52] VITALS: BP 175/75
[2020-11-29 13:55] VITALS: BP 140/70
[2020-11-30] MEDS ORDERED: ASPIRIN 81 MG EC TAB PO SCH (09:00)
== END 2020-11-29 15:40 | disposition home or self-care (01) ==
LOC: EDH 12:38 → EDHIP 15:14 → 4CH 22:24
PROVIDERS: ADMIT Internal Medicine; ATTEND Internal Medicine
DX: M94.0 Chondrocostal junction syndrome [Tietze] (principal); I10 Essential (primary) hypertension; E87.5 Hyperkalemia; E11.9 Type 2 diabetes mellitus without complications; E78.5 Hyperlipidemia, unspecified; I49.5 Sick sinus syndrome; E03.9 Hypothyroidism, unspecified; M25.512 Pain in left shoulder; M17.11 Unilateral primary osteoarthritis, right knee; Z95.0 Presence of cardiac pacemaker; Z90.710 Acquired absence of both cervix and uterus; Z86.711 Personal history of pulmonary embolism; Z86.718 Personal history of other venous thrombosis and embolism; Z79.01 Long term (current) use of anticoagulants; Z79.899 Other long term (current) drug therapy; Z88.8 Allergy status to other drugs, medicaments and biological substances
CPT/HCPCS: 36415 ×2; 71045; 73020; 73562; 80048; 80053; 80061; 82948 ×3; 83036; 84132; 84443; 84484 ×3; 85025 ×2; 93005 ×3; 99285; G0378 ×24

== ENCOUNTER 2021-01-22 10:18 | Emergency (ER) | payer MEDICARE, OTHER ==
[~2021-01-22 10:18] MED LIST changes: +METO25 PO
[2021-01-22 11:26] LABS: BASOPHILS % (AUTO) 0.8 % (0.0-5.0); EOSINOPHILS % (AUTO) 1.3 % (0.0-8.0); HEMATOCRIT 42.3 % (36-48); LYMPHOCYTES % (AUTO) 24.6 % (21.0-51.0); MEAN CORPUSCULAR HEMOGLOBIN 28.5 pg (27.0-33.0); MEAN CORPUSCULAR HGB CONC 32.2 g/dL (32.0-36.0); MEAN CORPUSCULAR VOLUME 88.7 fL (79-99); MONOCYTES % (AUTO) 9.8 % (3.0-13.0); NEUTROPHILS % (AUTO) 63.2 % (40.0-77.0); PLATELET COUNT (AUTO) 268 K/uL (130-400); RED BLOOD CELL COUNT(AUTO) 4.77 MIL/uL (4.00-5.50); RED CELL DISTRIBUTION WIDTH 13.3 % (11.0-15.5); WHITE BLOOD COUNT (AUTO) 5.9 K/uL (4.8-10.8)
[2021-01-22 11:34] LABS: CREATININE 0.9 mg/dL (0.5-1.5); POTASSIUM 4.2 mmol/L (3.5-5.1)
[2021-01-22 11:44] LABS: ALBUMIN 3.2 g/dL (3.5-5.0); BILIRUBIN,TOTAL 0.5 mg/dL (0.2-1.0); TOTAL PROTEIN, SERUM 7.7 g/dL (6.0-8.3)
[2021-01-22] MEDS ORDERED: MORPHINE SULFATE 2 MG/ML 1ML SYG ONE (11:44)
== END 2021-01-22 16:05 | disposition home or self-care (01) ==
LOC: EDH 10:18
DX: M54.13 Radiculopathy, cervicothoracic region (principal); M54.16 Radiculopathy, lumbar region; R07.89 Other chest pain; I10 Essential (primary) hypertension; E78.5 Hyperlipidemia, unspecified; E11.9 Type 2 diabetes mellitus without complications; Z95.0 Presence of cardiac pacemaker; Z88.8 Allergy status to other drugs, medicaments and biological substances; Z90.710 Acquired absence of both cervix and uterus
CPT/HCPCS: 36415; 71045; 72125; 72131; 80053; 82550; 83880; 84484; 85025; 85651; 93005; 96372

== ENCOUNTER 2021-12-13 15:13 | Inpatient (IN) | payer OTHER, MEDICARE ==
[~2021-12-13] VITALS: Ht 142.2 cm; Wt 74.1 kg
[2021-12-13] MEDS ORDERED: ENOXAPARIN SODIUM 1 MG/KG SQ SCH (16:00)
[2021-12-13] MEDS: ASPIRIN 81MG CHEW TAB PO SCH (16:30)
[2021-12-13] MEDS ORDERED: NITROGLYCERIN 0.4 MG SL TAB SL PRN ×2 (16:30→21:30)
[2021-12-13 16:42] LABS: BASOPHILS % (AUTO) 0.3 % (0.0-5.0); LYMPHOCYTES % (AUTO) 10.9 % (21.0-51.0); MEAN CORPUSCULAR HEMOGLOBIN 28.7 pg (27.0-33.0); MEAN CORPUSCULAR HGB CONC 33.4 g/dL (32.0-36.0); MONOCYTES % (AUTO) 5.4 % (3.0-13.0); NEUTROPHILS % (AUTO) 82.9 % (40.0-77.0); PLATELET COUNT (AUTO) 265 K/uL (130-400); RED BLOOD CELL COUNT(AUTO) 4.77 MIL/uL (4.00-5.50); RED CELL DISTRIBUTION WIDTH 13.9 % (11.0-15.5); WHITE BLOOD COUNT (AUTO) 10.8 K/uL (4.8-10.8)
[2021-12-13 17:03] LABS: B-TYPE NATRIURETIC PEPTIDE 63 pg/mL (0-100)
[2021-12-13 17:14] VITALS: BP 147/83
[2021-12-13 17:18] LABS: ALBUMIN 3.3 g/dL (3.5-5.0); BILIRUBIN,TOTAL 0.3 mg/dL (0.2-1.0); CREATININE 1.2 mg/dL (0.5-1.5); POTASSIUM 5.4 mmol/L (3.5-5.1); TOTAL PROTEIN, SERUM 7.2 g/dL (6.0-8.3)
[2021-12-13] MEDS ORDERED: MONT-39 PO (17:34)
[2021-12-13] MEDS ORDERED: PRED10B PO (17:34)
[2021-12-13] MEDS ORDERED: LOSA100T58 PO (17:34)
[2021-12-13] MEDS ORDERED: AEC81 PO (17:34)
[2021-12-13] MEDS ORDERED: DULO30CA52 PO (17:34)
[2021-12-13 18:05] LABS: HEMOGLOBIN A1C 8.5 % (4.0-6.0)
[2021-12-13 20:00] VITALS: BP 145/79
[2021-12-13] MEDS: METOPROLOL TARTRATE 25 MG TAB PO SCH (20:55)
[2021-12-13] MEDS: INSULIN HUMULIN R 100 UNIT/ML 3ML SQ SCH (20:57)
[2021-12-13] MEDS ORDERED: INSULIN GLARGINE 100 UNITS/ML 10 ML VIAL SQ SCH ×2 (21:00)
[2021-12-13] MEDS ORDERED: ENOXAPARIN SODIUM 80 MG/0.8 ML SQ SCH (21:30)
[2021-12-13] MEDS ORDERED: LACTULOSE 20 GM/30 ML UDCUP PO PRN (21:30)
[2021-12-13] MEDS ORDERED: LIDOCAINE HCL-MPF 1% 2ML VIAL IJ PRN (21:30)
[2021-12-13] MEDS ORDERED: ONDANSETRON 4MG INJ IVP PRN (21:30)
[2021-12-13] MEDS ORDERED: KCL 20 MEQ ERTAB PO PRN (21:30)
[2021-12-13] MEDS ORDERED: ACETAMINOPHEN 325 MG TAB PO PRN ×2 (21:30)
[2021-12-13] MEDS ORDERED: DEXTROSE 50%-WATER 50 ML DISP.SYRIN IV PRN (21:30)
[2021-12-13] MEDS ORDERED: POTASSIUM CHLORIDE 10% ELIXIR 20 MEQ/15 ML UDCUP PO PRN (21:30)
[2021-12-13] MEDS ORDERED: DIPHENHYDRAMINE HCL 25 MG CAPSULE PO PRN (21:30)
[2021-12-13] MEDS ORDERED: ZOLPIDEM TARTRATE 5 MG TAB PO PRN (21:30)
[2021-12-13] MEDS ORDERED: ALBUTEROL 0.083% 2.5 MG/3 ML INH IH PRN ×2 (21:30)
[2021-12-13] MEDS ORDERED: POTASSIUM CHLORIDE 20MEQ/100ML 100 ML IV PRN (21:30)
[2021-12-14] VITALS: BP 116/68
[2021-12-14 02:57] LABS: BASOPHILS % (AUTO) 0.4 % (0.0-5.0); EOSINOPHILS % (AUTO) 0.5 % (0.0-8.0); HEMATOCRIT 40.5 % (36-48); LYMPHOCYTES % (AUTO) 32.1 % (21.0-51.0); MEAN CORPUSCULAR HEMOGLOBIN 29.1 pg (27.0-33.0); MEAN CORPUSCULAR HGB CONC 33.6 g/dL (32.0-36.0); MEAN CORPUSCULAR VOLUME 86.7 fL (79-99); MONOCYTES % (AUTO) 9.4 % (3.0-13.0); PLATELET COUNT (AUTO) 270 K/uL (130-400); RED BLOOD CELL COUNT(AUTO) 4.67 MIL/uL (4.00-5.50); RED CELL DISTRIBUTION WIDTH 14.1 % (11.0-15.5); WHITE BLOOD COUNT (AUTO) 16.4 K/uL (4.8-10.8)
[2021-12-14 03:16] LABS: POTASSIUM 4.2 mmol/L (3.5-5.1)
[2021-12-14 04:00] VITALS: BP 123/63
[2021-12-14] MEDS: LEVOTHYROXINE 25 MCG TABLET PO SCH (05:48)
[2021-12-14] MEDS: INSULIN HUMULIN R 100 UNIT/ML 3ML SQ SCH ×4 (05:48→20:38)
[2021-12-14] MEDS ORDERED: INSULIN R PO SSI SQ SCH (07:30)
[2021-12-14 08:00] VITALS: BP 121/61
[2021-12-14] MEDS: ASPIRIN 81MG CHEW TAB PO SCH (09:00)
[2021-12-14] MEDS: METOPROLOL TARTRATE 25 MG TAB PO SCH ×2 (09:04→20:36)
[2021-12-14] MEDS: LOSARTAN 100 MG TABLET PO SCH (09:04)
[2021-12-14] MEDS ORDERED: BIVALIRUDIN 250 MG/VIAL IV ONE (09:45)
[2021-12-14] MEDS ORDERED: HEPARIN 10,000 UNIT/10ML (1,000 UNIT/ML) VIAL ONE (09:45)
[2021-12-14] MEDS ORDERED: FENTANYL CITRATE PF 50 MCG/1 ML 2ML VIAL ONE (09:46)
[2021-12-14] MEDS ORDERED: MIDAZOLAM HCL 1 MG/ML 2ML VIAL ONE (09:46)
[2021-12-14] MEDS ORDERED: NITROGLYCERIN 50MG VIAL ONE (09:46)
[2021-12-14] MEDS ORDERED: IOHEXOL-350 50ML VIAL IV ONE (09:47)
[2021-12-14] MEDS ORDERED: IOHEXOL 350 MG/ML 100ML INFUS..BTL IV ONE (09:47)
[2021-12-14] MEDS ORDERED: LIDOCAINE HCL 400MG/20ML VIAL ONE (09:47)
[2021-12-14] MEDS ORDERED: GLUCAGON 1MG KIT 1 MG ML IM PRN (11:00)
[2021-12-14] MEDS ORDERED: DEXTROSE 50%-WATER 50 ML DISP.SYRIN IV PRN (11:00)
[2021-12-14 12:00] VITALS: BP 126/74
[2021-12-14 16:00] VITALS: BP 134/103
[2021-12-14 20:00] VITALS: BP 132/79
[2021-12-15] VITALS: BP 107/60
[2021-12-15 04:00] VITALS: BP 121/62
[2021-12-15] MEDS: LEVOTHYROXINE 25 MCG TABLET PO SCH (05:39)
[2021-12-15] MEDS: INSULIN HUMULIN R 100 UNIT/ML 3ML SQ SCH ×2 (05:48→13:17)
[2021-12-15] MEDS ORDERED: DULOXETINE HCL 30 MG CAP PO SCH (06:30)
[2021-12-15 07:06] LABS: CREATININE 1.1 mg/dL (0.5-1.5)
[2021-12-15 07:15] LABS: BASOPHILS % (AUTO) 0.5 % (0.0-5.0); EOSINOPHILS % (AUTO) 0.9 % (0.0-8.0); HEMATOCRIT 43.9 % (36-48); LYMPHOCYTES % (AUTO) 45.2 % (21.0-51.0); MEAN CORPUSCULAR HEMOGLOBIN 28.1 pg (27.0-33.0); MEAN CORPUSCULAR HGB CONC 32.3 g/dL (32.0-36.0); MEAN CORPUSCULAR VOLUME 86.9 fL (79-99); MONOCYTES % (AUTO) 9.8 % (3.0-13.0); NEUTROPHILS % (AUTO) 43.2 % (40.0-77.0); PLATELET COUNT (AUTO) 239 K/uL (130-400); RED BLOOD CELL COUNT(AUTO) 5.05 MIL/uL (4.00-5.50); RED CELL DISTRIBUTION WIDTH 14.2 % (11.0-15.5); WHITE BLOOD COUNT (AUTO) 11.6 K/uL (4.8-10.8)
[2021-12-15 08:04] VITALS: BP 121/70
[2021-12-15] MEDS: METOPROLOL TARTRATE 25 MG TAB PO SCH (08:30)
[2021-12-15] MEDS: ASPIRIN 81MG CHEW TAB PO SCH (08:30)
[2021-12-15] MEDS: LOSARTAN 100 MG TABLET PO SCH (08:30)
[2021-12-15] MEDS ORDERED: RIVAROXABAN 15 MG TABLET PO SCH (09:00)
[2021-12-15 12:00] VITALS: BP 119/75
[2021-12-15] MEDS ORDERED: PREDNISONE 10 MG TABLET PO SCH (15:30)
[2021-12-15] MEDS ORDERED: LOSARTAN 100 MG TABLET PO SCH (15:30)
[2021-12-15] MEDS ORDERED: MONTELUKAST SODIUM 10 MG TAB PO SCH (15:30)
[2021-12-15] MEDS ORDERED: METFORMIN HCL 500 MG TABLET PO SCH (21:00)
[2021-12-15] MEDS ORDERED: METOPROLOL TARTRATE 25 MG TAB PO SCH (21:00)
[2021-12-16] MEDS ORDERED: LEVOTHYROXINE 25 MCG TABLET PO SCH (06:30)
[2021-12-16] MEDS ORDERED: ASPIRIN 81 MG EC TAB PO SCH (09:00)
== END 2021-12-15 15:50 | disposition home or self-care (01) | DRG 287 ==
LOC: EDH 15:13 → EDHIP 15:25 → 2AH 17:11
PROVIDERS: ADMIT Internal Medicine; ATTEND Internal Medicine
PROC: 4A023N8 Measurement of Cardiac Sampling and Pressure, Bilateral, Percutaneous Approach (ICD-10-PCS; principal; 2021-12-14)
PROC: B2111ZZ Fluoroscopy of Multiple Coronary Arteries using Low Osmolar Contrast (ICD-10-PCS; 2021-12-14)
PROC: B2151ZZ Fluoroscopy of Left Heart using Low Osmolar Contrast (ICD-10-PCS; 2021-12-14)
PROC: B41J1ZZ Fluoroscopy of Other Lower Arteries using Low Osmolar Contrast (ICD-10-PCS; 2021-12-14)
DX: I25.10 Atherosclerotic heart disease of native coronary artery without angina pectoris (principal); E87.1 Hypo-osmolality and hyponatremia; I13.0 Hypertensive heart and chronic kidney disease with heart failure and stage 1 through stage 4 chronic kidney disease, or unspecified chronic kidney disease; I50.22 Chronic systolic (congestive) heart failure; Z20.822 Contact with and (suspected) exposure to COVID-19; E03.9 Hypothyroidism, unspecified; E11.65 Type 2 diabetes mellitus with hyperglycemia; E11.22 Type 2 diabetes mellitus with diabetic chronic kidney disease; E87.5 Hyperkalemia; N18.30 Chronic kidney disease, stage 3 unspecified; R53.81 Other malaise; J45.909 Unspecified asthma, uncomplicated; D72.829 Elevated white blood cell count, unspecified; Z90.710 Acquired absence of both cervix and uterus
CPT/HCPCS: 36415; 70450; 71045; 80048; 80053; 80061; 82948; 83036; 83880; 84145; 84484; 85025; 85378; 87635; 93005; 93460; 93970; 99156; 99157; C1894; G0378; J0583; J1644; J1815; J2250; J3010; J3490; Q9967

== ENCOUNTER 2022-01-08 12:36 | Emergency (ER) | payer OTHER, MEDICARE ==
[~2022-01-08 12:36] MED LIST changes: +AEC81 PO; -DONE5TAB33 PO; +DULO30CA52 PO; -FLUT15.845 NS; -FLUT1DIS3 IH; +LOSA100T58 PO; -MELA10TA PO; +MONT-39 PO; +PRED10B PO; -SIMV-46 PO
[2022-01-08 13:15] LABS: BASOPHILS % (AUTO) 0.4 % (0.0-5.0); EOSINOPHILS % (AUTO) 0.2 % (0.0-8.0); HEMATOCRIT 43.2 % (36-48); LYMPHOCYTES % (AUTO) 18.1 % (21.0-51.0); MEAN CORPUSCULAR HEMOGLOBIN 28.8 pg (27.0-33.0); MEAN CORPUSCULAR HGB CONC 32.2 g/dL (32.0-36.0); MEAN CORPUSCULAR VOLUME 89.6 fL (79-99); MONOCYTES % (AUTO) 7.5 % (3.0-13.0); NEUTROPHILS % (AUTO) 73.1 % (40.0-77.0); PLATELET COUNT (AUTO) 210 K/uL (130-400); RED BLOOD CELL COUNT(AUTO) 4.82 MIL/uL (4.00-5.50); RED CELL DISTRIBUTION WIDTH 13.7 % (11.0-15.5); WHITE BLOOD COUNT (AUTO) 12.6 K/uL (4.8-10.8)
[2022-01-08 13:45] LABS: ALBUMIN 2.9 g/dL (3.5-5.0); BILIRUBIN,TOTAL 0.5 mg/dL (0.2-1.0); CREATININE 1.3 mg/dL (0.5-1.5); POTASSIUM 5.7 mmol/L (3.5-5.1)
[2022-01-08 13:56] LABS: B-TYPE NATRIURETIC PEPTIDE 63 pg/mL (0-100)
[2022-01-08 13:59] LABS: APPEARANCE,URINE Clear (CLEAR); BILIRUBIN,URINE Negative (NEGATIVE); COLOR,URINE Yellow (YELLOW); GLUCOSE, URINE (UA) >=1000 mg/dL (NEGATIVE); KETONES,URINE Trace mg/dL (NEGATIVE); LEUKOCYTE ESTERASE ,URINE Negative (NEGATIVE); NITRATE,URINE Negative (NEGATIVE); OCCULT BLOOD,URINE Negative (NEGATIVE); PROTEIN,URINE Negative (NEGATIVE); UROBILINOGEN,URINE 0.2 mg/dL (0.2-1.0)
[2022-01-08] MEDS ORDERED: 0.9%NACL 1000ML 1,000 ML IV ONE (14:00)
[2022-01-08] MEDS ORDERED: INSULIN HUMULIN R 100 UNIT/ML 3ML SQ ONE (14:00)
[2022-01-08] MEDS ORDERED: INSULIN HUMULIN R 100 UNIT/ML 3ML ONE (14:02)
[2022-01-08 14:14] LABS: BACTERIA,URINE Rare /HPF (None Seen); RBC,URINE 0-1 /HPF (0-1); SQUAMOUS EPITHELIAL CELL,UR Rare /HPF (0-2); WBC,URINE 0-1 /HPF (0-1)
[2022-01-08 15:13] VITALS: BP 152/74
== END 2022-01-08 17:20 | disposition home or self-care (01) ==
LOC: EDH 12:36
DX: E11.65 Type 2 diabetes mellitus with hyperglycemia (principal); E86.9 Volume depletion, unspecified; I11.9 Hypertensive heart disease without heart failure; E78.00 Pure hypercholesterolemia, unspecified; F41.9 Anxiety disorder, unspecified; R29.6 Repeated falls; I25.2 Old myocardial infarction; Z79.52 Long term (current) use of systemic steroids; Z79.82 Long term (current) use of aspirin; Z79.84 Long term (current) use of oral hypoglycemic drugs; Z88.8 Allergy status to other drugs, medicaments and biological substances; Z95.810 Presence of automatic (implantable) cardiac defibrillator
CPT/HCPCS: 36415; 70450; 71045; 80053; 81001; 82948 ×2; 83880; 84484; 85025; 93005; 96360; 99285; J1815; J7030

== ENCOUNTER → 2022-02-26 | Outpatient (CLI) | payer OTHER, MEDICARE ==
[2022-02-26 10:20] LABS: BASOPHILS % (AUTO) 0.5 % (0.0-5.0); EOSINOPHILS % (AUTO) 0.7 % (0.0-8.0); HEMATOCRIT 45.7 % (36-48); LYMPHOCYTES % (AUTO) 24.3 % (21.0-51.0); MEAN CORPUSCULAR HEMOGLOBIN 28.4 pg (27.0-33.0); MEAN CORPUSCULAR HGB CONC 31.3 g/dL (32.0-36.0); MEAN CORPUSCULAR VOLUME 90.7 fL (79-99); MONOCYTES % (AUTO) 8.4 % (3.0-13.0); NEUTROPHILS % (AUTO) 65.7 % (40.0-77.0); PLATELET COUNT (AUTO) 320 K/uL (130-400); RED BLOOD CELL COUNT(AUTO) 5.04 MIL/uL (4.00-5.50); RED CELL DISTRIBUTION WIDTH 13.2 % (11.0-15.5); WHITE BLOOD COUNT (AUTO) 11.2 K/uL (4.8-10.8)
[2022-02-26 10:50] LABS: B-TYPE NATRIURETIC PEPTIDE 170 pg/mL (0-100)
== END | disposition home or self-care (01) ==
LOC: LAB 09:25
PROVIDERS: ATTEND Internal Medicine Cardiovascular Disease
DX: I10 Essential (primary) hypertension (principal)
CPT/HCPCS: 36415; 83880; 85025

== ENCOUNTER 2022-09-10 19:25 | Emergency (ER) | payer OTHER, MEDICARE ==
[2022-09-10 20:00] LABS: BASOPHILS % (AUTO) 0.2 % (0.0-5.0); HEMATOCRIT 35.8 % (36-48); LYMPHOCYTES % (AUTO) 17.5 % (21.0-51.0); MEAN CORPUSCULAR HEMOGLOBIN 27.2 pg (27.0-33.0); MEAN CORPUSCULAR HGB CONC 32.1 g/dL (32.0-36.0); MEAN CORPUSCULAR VOLUME 84.6 fL (79-99); MONOCYTES % (AUTO) 8.7 % (3.0-13.0); NEUTROPHILS % (AUTO) 71.6 % (40.0-77.0); PLATELET COUNT (AUTO) 317 K/uL (130-400); RED BLOOD CELL COUNT(AUTO) 4.23 MIL/uL (4.00-5.50); RED CELL DISTRIBUTION WIDTH 16.2 % (11.0-15.5); WHITE BLOOD COUNT (AUTO) 9.7 K/uL (4.8-10.8)
[2022-09-10 20:08] LABS: CREATININE 1.5 mg/dL (0.5-1.5); POTASSIUM 4.8 mmol/L (3.5-5.1)
[2022-09-10 20:09] LABS: APPEARANCE,URINE CLEAR (CLEAR); BILIRUBIN,URINE NEGATIVE (NEGATIVE); COLOR,URINE LIGHT-YELLOW (YELLOW); GLUCOSE, URINE (UA) 200 mg/dL (NEGATIVE); KETONES,URINE NEGATIVE (NEGATIVE); LEUKOCYTE ESTERASE ,URINE NEGATIVE Leu/uL (NEGATIVE); NITRATE,URINE NEGATIVE (NEGATIVE); OCCULT BLOOD,URINE NEGATIVE (NEGATIVE); PROTEIN,URINE NEGATIVE (NEGATIVE); UROBILINOGEN,URINE 0.2 mg/dL (0.2-1.0)
[2022-09-10 20:17] LABS: ALBUMIN 3.1 g/dL (3.5-5.0); MAGNESIUM 1.9 mg/dL (1.80-2.40); TOTAL PROTEIN, SERUM 7.1 g/dL (6.0-8.3)
[2022-09-10 20:19] LABS: MUCUS,URINE RARE LPF (None Seen); RBC,URINE 0-1 /HPF (0-1); SQUAMOUS EPITHELIAL CELL,UR RARE /HPF (0-2); WBC,URINE 0-1 /HPF (0-1)
[2022-09-11] MEDS ORDERED: METH4TAB3 PO (02:52)
[2022-09-11] MEDS ORDERED: SOLU-MEDROL 125MG VIAL IVP ONE (03:00)
[2022-09-11 05:08] VITALS: BP 144/76
== END 2022-09-11 06:18 | disposition home or self-care (01) ==
LOC: EDH 19:25
DX: M53.1 Cervicobrachial syndrome (principal); M94.0 Chondrocostal junction syndrome [Tietze]; I11.0 Hypertensive heart disease with heart failure; I50.9 Heart failure, unspecified; I25.2 Old myocardial infarction; J45.909 Unspecified asthma, uncomplicated; E03.9 Hypothyroidism, unspecified; E11.9 Type 2 diabetes mellitus without complications; E78.00 Pure hypercholesterolemia, unspecified; Z95.0 Presence of cardiac pacemaker; Z79.82 Long term (current) use of aspirin; Z79.84 Long term (current) use of oral hypoglycemic drugs; Z79.52 Long term (current) use of systemic steroids; Z79.899 Other long term (current) drug therapy; Z88.8 Allergy status to other drugs, medicaments and biological substances
CPT/HCPCS: 99285; 83735; 84484; 80053; 85025; 81001; 36415; 71045; 93005; 96374; J2930

== ENCOUNTER 2023-10-01 18:30 | Emergency (ER) | payer MEDICARE, OTHER ==
[~2023-10-01] VITALS: Ht 152.4 cm; Wt 63.5 kg
[~2023-10-01 18:30] MED LIST changes: -LOSA100T58 PO; +LOSA100T59 PO; +METH4TAB3 PO
[2023-10-01 18:59] LABS: APPEARANCE,URINE CLOUDY (CLEAR); BILIRUBIN,URINE NEGATIVE (NEGATIVE); COLOR,URINE YELLOW (YELLOW); GLUCOSE, URINE (UA) NEGATIVE (NEGATIVE); KETONES,URINE 5 mg/dL (NEGATIVE); LEUKOCYTE ESTERASE ,URINE 500 Leu/uL (NEGATIVE); NITRATE,URINE NEGATIVE (NEGATIVE); PH,URINE 5.5 (5.0-8.0); PROTEIN,URINE 30 mg/dL (NEGATIVE)
[2023-10-01 19:00] LABS: BASOPHILS # (AUTO) 0.02 K/uL (0.00-0.20); BASOPHILS % (AUTO) 0.2 % (0.0-5.0); EOSINOPHILS # (AUTO) 0.38 K/uL (0.00-0.70); EOSINOPHILS % (AUTO) 3.6 % (0.0-8.0); HEMATOCRIT 33.5 % (36-48); IMMATURE GRANULOCYTE ABSOLUTE 0.04 K/uL (0-1); LYMPHOCYTES % (AUTO) 18.7 % (21.0-51.0); MEAN CORPUSCULAR HEMOGLOBIN 28.4 pg (27.0-33.0); MEAN CORPUSCULAR HGB CONC 32.8 g/dL (32.0-36.0); MEAN CORPUSCULAR VOLUME 86.3 fL (79-99); MONOCYTES # (AUTO) 1.1 K/uL (0.1-1.0); NEUTROPHILS # (AUTO) 7.1 K/uL (1.8-7.7); NEUTROPHILS % (AUTO) 67.1 % (40.0-77.0); PLATELET COUNT (AUTO) 202 K/uL (130-400); RED BLOOD CELL COUNT(AUTO) 3.88 MIL/uL (4.00-5.50); RED CELL DISTRIBUTION WIDTH 14.7 % (11.0-15.5); WHITE BLOOD COUNT (AUTO) 10.5 K/uL (4.8-10.8)
[2023-10-01 19:04] LABS: ADD UA MICROSCOPIC YES
[2023-10-01 19:08] LABS: BACTERIA,URINE RARE /HPF (None Seen); CALCIUM OXALATE CRYSTALS,UR FEW /LPF (None Seen); MUCUS,URINE RARE LPF (None Seen); NON-SQUAMOUS EPITHELIAL CELL 2 /HPF (0-2); OTHER CASTS, URINE 1 /LPF (None Seen); SQUAMOUS EPITHELIAL CELL,UR MOD /HPF (0-2)
[2023-10-01 19:43] VITALS: BP 137/68; PULSE 83; RESP 18; O2SAT 96
[2023-10-01] MEDS ORDERED: ACET325T51 PO (20:18)
[2023-10-01] MEDS ORDERED: BUDE0.5A3 IH (20:18)
[2023-10-01] MEDS ORDERED: BENZ-39 PO (20:18)
[2023-10-01] MEDS ORDERED: INSU3INS3 SQ (20:18)
[2023-10-01] MEDS ORDERED: SERT-438 PO (20:18)
[2023-10-01] MEDS ORDERED: LATA2.5D14 OP (20:18)
[2023-10-01] MEDS ORDERED: CALC-125 PO (20:18)
[2023-10-01] MEDS ORDERED: SIMV-46 PO (20:18)
[2023-10-01] MEDS ORDERED: PANT40TA55 PO (20:18)
[2023-10-01] MEDS ORDERED: MELA3TAB41 PO (20:18)
[2023-10-01] MEDS ORDERED: IPRA3AMP24 IH (20:18)
[2023-10-01] MEDS ORDERED: METF-444 PO (20:18)
[2023-10-01] MEDS ORDERED: DILT120C89 PO (20:18)
[2023-10-01] MEDS ORDERED: CELE-125 PO (20:18)
[2023-10-01] MEDS ORDERED: LACT10SO9 PO (20:18)
[2023-10-01] MEDS ORDERED: FLUT1BLS3 IH (20:18)
[2023-10-01] MEDS ORDERED: RIVA20TA PO (20:18)
[2023-10-01] MEDS ORDERED: BUME1TAB6 PO (20:18)
[2023-10-01] MEDS ORDERED: GABA300C PO (20:18)
[2023-10-01] MEDS ORDERED: CHOL1CRY2 MC (20:18)
[2023-10-01] MEDS ORDERED: LOSA25TA41 PO (20:18)
[2023-10-01] MEDS ORDERED: DONE5TAB5 PO (20:18)
[2023-10-01] MEDS ORDERED: BUSP10TA3 PO (20:18)
[2023-10-01] MEDS ORDERED: INSREG SQ (20:18)
[2023-10-01] MEDS ORDERED: MONT-46 PO (20:18)
[2023-10-01 20:40] LABS: ALBUMIN 2.4 g/dL (3.5-5.0); BILIRUBIN,TOTAL 0.4 mg/dL (0.2-1.0); CREATININE 1.2 mg/dL (0.5-1.5); POTASSIUM 3.1 mmol/L (3.5-5.1)
== END 2023-10-02 01:32 ==
LOC: EDH 18:30
DX: R60.0 Localized edema (principal); F41.9 Anxiety disorder, unspecified; J44.9 Chronic obstructive pulmonary disease, unspecified; F32.A Depression, unspecified; F03.93 Unspecified dementia, unspecified severity, with mood disturbance; I10 Essential (primary) hypertension; E03.9 Hypothyroidism, unspecified; E78.00 Pure hypercholesterolemia, unspecified; J45.909 Unspecified asthma, uncomplicated; Z79.01 Long term (current) use of anticoagulants; Z79.1 Long term (current) use of non-steroidal anti-inflammatories (NSAID); Z79.82 Long term (current) use of aspirin; Z79.84 Long term (current) use of oral hypoglycemic drugs; Z79.890 Hormone replacement therapy; Z79.899 Other long term (current) drug therapy; Z86.73 Personal history of transient ischemic attack (TIA), and cerebral infarction without residual deficits; Z88.8 Allergy status to other drugs, medicaments and biological substances; Z95.810 Presence of automatic (implantable) cardiac defibrillator
CPT/HCPCS: 36415; 71045; 80053; 81001; 83880; 84484; 85025; 87088; 93970

== ENCOUNTER 2023-11-04 18:35 | Inpatient (IN) | payer MEDICARE, OTHER ==
[~2023-11-04] VITALS: Ht 152.4 cm; Wt 71.5 kg
[~2023-11-04 18:35] MED LIST changes: +ACET325T51 PO; +BENZ-39 PO; +BUDE0.5A3 IH; +BUME1TAB6 PO; +BUSP10TA3 PO; +CALC-125 PO; +CELE-125 PO; +CHOL1CRY2 MC; +DILT120C89 PO; +DONE5TAB5 PO; +FLUT1BLS3 IH; +GABA300C PO; +INSREG SQ; +INSU3INS3 SQ; +IPRA3AMP24 IH; +LACT10SO9 PO; +LATA2.5D14 OP; +LOSA25TA41 PO; +MELA3TAB41 PO; +MONT-46 PO; +PANT40TA55 PO; +RIVA20TA PO; +SERT-438 PO; +SIMV-46 PO
[2023-11-04 18:59] VITALS: PULSE 91; RESP 28
[2023-11-04 19:04] VITALS: PULSE 94; RESP 24
[2023-11-04 19:31] LABS: BASOPHILS # (AUTO) 0.05 K/uL (0.00-0.20); BASOPHILS % (AUTO) 0.2 % (0.0-5.0); EOSINOPHILS # (AUTO) 0.01 K/uL (0.00-0.70); HEMATOCRIT 34.7 % (36-48); IMMATURE GRANULOCYTE ABSOLUTE 0.15 K/uL (0-1); LYMPHOCYTES # (AUTO) 2.3 K/uL (1.0-4.8); LYMPHOCYTES % (AUTO) 10.2 % (21.0-51.0); MEAN CORPUSCULAR HEMOGLOBIN 26.9 pg (27.0-33.0); MEAN CORPUSCULAR VOLUME 84.2 fL (79-99); MONOCYTES % (AUTO) 4.3 % (3.0-13.0); NEUTROPHILS # (AUTO) 18.7 K/uL (1.8-7.7); NEUTROPHILS % (AUTO) 84.6 % (40.0-77.0); PLATELET COUNT (AUTO) 312 K/uL (130-400); RED BLOOD CELL COUNT(AUTO) 4.12 MIL/uL (4.00-5.50); RED CELL DISTRIBUTION WIDTH 14.7 % (11.0-15.5); WHITE BLOOD COUNT (AUTO) 22.1 K/uL (4.8-10.8)
[2023-11-04 19:36] LABS: CREATININE 1.5 mg/dL (0.5-1.5); POTASSIUM 3.8 mmol/L (3.5-5.1)
[2023-11-04] MEDS: DEXAMETHASONE SOD PHOSPHATE 4 MG/ML 1ML VIAL IVP ONE (19:44)
[2023-11-04 19:46] LABS: ALBUMIN 2.9 g/dL (3.5-5.0); BILIRUBIN,TOTAL 0.3 mg/dL (0.2-1.0); TOTAL PROTEIN, SERUM 7.6 g/dL (6.0-8.3)
[2023-11-04 20:25] VITALS: PULSE 90; RESP 20
[2023-11-04] MEDS ORDERED: MAGNESIUM 2GM PREMIX 50ML 50 ML IV SCH (20:30)
[2023-11-04 20:35] VITALS: PULSE 97; RESP 20
[2023-11-04 20:52] LABS: ABG HCO3 23.9 mmol/L (21.0-28.0); ABG OXYGEN SATURATION 94.2 % (95.0-99.0); ABG PCO2 37 mmHg (32-45); ABG PH 7.431 (7.35-7.450); VENT MODE, BG ROOM AIR (ROOM AIR)
[2023-11-04 21:04] VITALS: PULSE 100; RESP 25; O2SAT 98
[2023-11-04] MEDS: IPRATROPIUM/ALBUTEROL SULFATE 3 ML SOLUTION IH ONE ×5 (21:05→21:08)
[2023-11-04] MEDS: BUDESONIDE 0.5 MG/2 ML INH IH SCH (21:05)
[2023-11-04] MEDS: FUROSEMIDE 40MG VIAL IV ONE (21:15)
[2023-11-04] MEDS: MAGNESIUM 2GM PREMIX 50ML 50 ML IV ONE (21:16)
[2023-11-04] MEDS: LEVOFLOXACIN 500 MG/D5W 100 ML 100 ML IV SCH (21:22)
[2023-11-04] MEDS: MAGNESIUM 2GM PREMIX 50ML 50 ML IV SCH (21:26)
[2023-11-04] MEDS: 0.9%NACL 1000ML 1,000 ML IV ONE (21:30)
[2023-11-05] VITALS (16 sets, daily range): BP systolic 132–158; BP diastolic 59–81; PULSE 84–104; RESP 18–29; O2SAT 96–100
[2023-11-05] MEDS: IPRATROPIUM/ALBUTEROL SULFATE 3 ML SOLUTION IH ONE (01:24)
[2023-11-05] MEDS: IPRATROPIUM/ALBUTEROL SULFATE 3 ML SOLUTION IH SCH (01:24)
[2023-11-05] MEDS ORDERED: DEXTROSE 50%-WATER 50 ML DISP.SYRIN IV PRN (01:30)
[2023-11-05] MEDS ORDERED: ONDANSETRON 4MG INJ IV PRN (01:30)
[2023-11-05] MEDS ORDERED: GLUCAGON 1MG KIT 1 MG ML IM PRN (01:30)
[2023-11-05] MEDS ORDERED: ACETAMINOPHEN 325 MG TAB PO PRN (01:30)
[2023-11-05 01:38] LABS: INFLUENZA TYPE A Negative For Type A (NEGATIVE); INFLUENZA TYPE B Negative For Type B (NEGATIVE)
[2023-11-05] MEDS: CEFTRIAXONE 1G VIAL 1 GM in 0.9%NACL 50ML 50 ML IV SCH (02:57)
[2023-11-05] MEDS: DEXAMETHASONE SOD PHOSPHATE 4 MG/ML 1ML VIAL IVP SCH (02:57)
[2023-11-05] MEDS: CEFTRIAXONE 1G VIAL ONE (02:59)
[2023-11-05] MEDS: AZITHROMYCIN 500MG+NS 250ML 250 ML IV SCH (02:59)
[2023-11-05 03:45] LABS: ADD UA MICROSCOPIC YES; APPEARANCE,URINE CLEAR (CLEAR); BILIRUBIN,URINE NEGATIVE (NEGATIVE); COLOR,URINE COLORLESS (YELLOW); GLUCOSE, URINE (UA) TRACE mg/dL (NEGATIVE); KETONES,URINE NEGATIVE (NEGATIVE); LEUKOCYTE ESTERASE ,URINE NEGATIVE Leu/uL (NEGATIVE); NITRATE,URINE NEGATIVE (NEGATIVE); OCCULT BLOOD,URINE NEGATIVE (NEGATIVE); PROTEIN,URINE NEGATIVE (NEGATIVE); UROBILINOGEN,URINE 0.2 mg/dL (0.2-1.0)
[2023-11-05 03:46] LABS: BACTERIA,URINE FEW /HPF (None Seen); MUCUS,URINE RARE LPF (None Seen); SQUAMOUS EPITHELIAL CELL,UR RARE /HPF (0-2); WBC,URINE 0-1 /HPF (0-1)
[2023-11-05] MEDS: INSULIN HUMULIN R 100 UNIT/ML 3ML SQ SCH (06:00)
[2023-11-05] MEDS ORDERED: BUDESONIDE 0.5 MG/2 ML INH IH SCH (06:00)
[2023-11-05 07:27] LABS: BASOPHILS # (AUTO) 0.01 K/uL (0.00-0.20); BASOPHILS % (AUTO) 0.1 % (0.0-5.0); HEMATOCRIT 30.6 % (36-48); IMMATURE GRANULOCYTE ABSOLUTE 0.11 K/uL (0-1); MEAN CORPUSCULAR HGB CONC 32.4 g/dL (32.0-36.0); MEAN CORPUSCULAR VOLUME 83.6 fL (79-99); MONOCYTES # (AUTO) 0.2 K/uL (0.1-1.0); MONOCYTES % (AUTO) 1.7 % (3.0-13.0); NEUTROPHILS # (AUTO) 10.2 K/uL (1.8-7.7); NEUTROPHILS % (AUTO) 88.2 % (40.0-77.0); PLATELET COUNT (AUTO) 291 K/uL (130-400); RED BLOOD CELL COUNT(AUTO) 3.66 MIL/uL (4.00-5.50); RED CELL DISTRIBUTION WIDTH 14.7 % (11.0-15.5); WHITE BLOOD COUNT (AUTO) 11.5 K/uL (4.8-10.8)
[2023-11-05] MEDS: 0.9%NACL 1000ML 1,000 ML IV SCH (07:39)
[2023-11-05] MEDS: HEPARIN 5,000 UNIT VIAL SQ SCH (07:39)
[2023-11-05] MEDS: BENZONATATE 100 MG CAPSULE PO PRN (07:47)
[2023-11-05 07:48] LABS: ALBUMIN 2.5 g/dL (3.5-5.0); BILIRUBIN,TOTAL 0.3 mg/dL (0.2-1.0); CREATININE 1.3 mg/dL (0.5-1.5); MAGNESIUM 2.2 mg/dL (1.80-2.40); POTASSIUM 4.8 mmol/L (3.5-5.1); TOTAL PROTEIN, SERUM 7.1 g/dL (6.0-8.3)
[2023-11-05 08:10] LABS: B-TYPE NATRIURETIC PEPTIDE 91 pg/mL (0-100)
[2023-11-05 08:24] LABS: LYMPHOCYTES % (MANUAL) 11 % (22-44); MAN.DIFF COMMENT-IMPRESSION MANUAL DIFFERENTIAL; MONOCYTES % (MANUAL) 1 % (2-9); PLATELET MORPHOLOGY COMMENT ADEQUATE; SEGMENTED NEUTROPHILS % 88 % (40-70); TOTAL CELLS COUNTED 100
[2023-11-05] MEDS: FAMOTIDINE 20MG VIAL IV SCH (08:43)
[2023-11-05 08:49] LABS: HEMOGLOBIN A1C 7.4 % (4.0-6.0)
[2023-11-05] MEDS ORDERED: DIPHENHYDRAMINE HCL 25 MG CAPSULE PO PRN (09:00)
[2023-11-05] MEDS: DIPHENHYDRAMINE HCL 25 MG CAPSULE PO ONE (09:27)
[2023-11-05] MEDS: ZOSYN 3.375GM +NS 50ML IV SCH (09:28)
[2023-11-05] MEDS: LORATADINE 10 MG TABLET PO SCH (09:28)
[2023-11-05] MEDS: GUAIFENESIN/DEXTROMETHORPHAN 1 EACH TAB.SR.12H PO SCH (09:28)
[2023-11-05] MEDS: ALBUTEROL 0.083% 2.5 MG/3 ML INH IH ONE (09:37)
[2023-11-05] MEDS: KETOROLAC 15MG/ML VIAL (15MG/ML) IV PRN (16:04)
[2023-11-05] MEDS ORDERED: BUSP10TA3 PO (18:11)
[2023-11-05] MEDS ORDERED: DICL20GE TP (18:11)
[2023-11-05] MEDS ORDERED: ACET325T51 PO (18:11)
[2023-11-05] MEDS: BUDESONIDE 0.5 MG/2 ML INH IH SCH (19:29)
[2023-11-05] MEDS: MONTELUKAST SODIUM 10 MG TAB PO SCH (19:41)
[2023-11-06] VITALS (16 sets, daily range): BP systolic 124–140; BP diastolic 45–72; PULSE 70–104; RESP 15–22; O2SAT 96–100
[2023-11-06] MEDS ORDERED: ACETAMINOPHEN 325 MG TAB PO PRN
[2023-11-06 05:46] LABS: BASOPHILS # (AUTO) 0.01 K/uL (0.00-0.20); BASOPHILS % (AUTO) 0.1 % (0.0-5.0); IMMATURE GRANULOCYTE ABSOLUTE 0.11 K/uL (0-1); LYMPHOCYTES # (AUTO) 0.9 K/uL (1.0-4.8); LYMPHOCYTES % (AUTO) 7.3 % (21.0-51.0); MEAN CORPUSCULAR HEMOGLOBIN 26.8 pg (27.0-33.0); MEAN CORPUSCULAR HGB CONC 31.9 g/dL (32.0-36.0); MONOCYTES # (AUTO) 0.5 K/uL (0.1-1.0); MONOCYTES % (AUTO) 3.8 % (3.0-13.0); NEUTROPHILS # (AUTO) 11.2 K/uL (1.8-7.7); NEUTROPHILS % (AUTO) 87.9 % (40.0-77.0); PLATELET COUNT (AUTO) 259 K/uL (130-400); RED BLOOD CELL COUNT(AUTO) 3.69 MIL/uL (4.00-5.50); RED CELL DISTRIBUTION WIDTH 14.6 % (11.0-15.5); WHITE BLOOD COUNT (AUTO) 12.7 K/uL (4.8-10.8)
[2023-11-06 06:04] LABS: % IRON SATURATION 5.8 % (22-44)
[2023-11-06 06:38] LABS: ALBUMIN 2.4 g/dL (3.5-5.0); BILIRUBIN,TOTAL 0.3 mg/dL (0.2-1.0); MAGNESIUM 2.3 mg/dL (1.80-2.40); POTASSIUM 4.1 mmol/L (3.5-5.1)
[2023-11-06] MEDS: SERTRALINE HCL 50 MG TABLET PO SCH (08:19)
[2023-11-06] MEDS: BUSPIRONE HCL 5 MG TABLET PO SCH (08:19)
[2023-11-06] MEDS: LOSARTAN 25 MG TABLET PO SCH (08:19)
[2023-11-06] MEDS: DICLOFENAC TP SCH (08:20)
[2023-11-06] MEDS: PANTOPRAZOLE 40 MG TAB DR PO SCH (08:20)
[2023-11-06] MEDS: BUMETANIDE 1 MG TAB PO SCH (08:20)
[2023-11-06] MEDS: DILTIAZEM 120MG SR CAP PO SCH (08:20)
[2023-11-06] MEDS: LACTULOSE 20 GM/30 ML UDCUP PO SCH (08:22)
[2023-11-06] MEDS: GABAPENTIN 300 MG CAPSULE PO SCH (08:23)
[2023-11-06] MEDS: SIMVASTATIN 20 MG TABLET PO SCH (19:57)
[2023-11-06] MEDS: DONEPEZIL HCL 5 MG TAB PO SCH (19:57)
[2023-11-06] MEDS: SOLU-MEDROL 40MG VIAL IVP SCH (19:57)
[2023-11-06] MEDS: INSULIN GLARGINE 100 UNITS/ML 10 ML VIAL SQ SCH (19:58)
[2023-11-06] MEDS: MELATONIN 5 MG TABLET PO SCH (19:58)
[2023-11-06] MEDS: RIVAROXABAN 20 MG TABLET PO SCH (20:08)
[2023-11-06] MEDS: LATANOPROST 2.5 ML DROPS OP SCH (21:00)
[2023-11-07] VITALS (18 sets, daily range): BP systolic 112–144; BP diastolic 45–78; PULSE 71–90; RESP 15–22; O2SAT 96–98
[2023-11-07] MEDS: ACETAMINOPHEN 325 MG TAB PO PRN (00:36)
[2023-11-07 04:41] LABS: HEMATOCRIT 28.3 % (36-48); MEAN CORPUSCULAR HEMOGLOBIN 26.4 pg (27.0-33.0); MEAN CORPUSCULAR HGB CONC 31.1 g/dL (32.0-36.0); RED BLOOD CELL COUNT(AUTO) 3.33 MIL/uL (4.00-5.50); RED CELL DISTRIBUTION WIDTH 14.6 % (11.0-15.5); WHITE BLOOD COUNT (AUTO) 8.9 K/uL (4.8-10.8)
[2023-11-07] MEDS: INSULIN HUMULIN R 100 UNIT/ML 3ML SQ SCH ×2 (07:52→07:53)
[2023-11-07] MEDS: IPRATROPIUM/ALBUTEROL SULFATE 3 ML SOLUTION IH SCH (19:27)
[2023-11-07] MEDS: INSULIN GLARGINE 100 UNITS/ML 10 ML VIAL SQ SCH (22:40)
[2023-11-08] VITALS (15 sets, daily range): BP systolic 111–141; BP diastolic 55–66; PULSE 72–86; RESP 17–20; O2SAT 94–98
[2023-11-08] MEDS: METOPROLOL TARTRATE 1 MG/ML 5ML VIAL IV SCH (01:51)
[2023-11-08 05:40] LABS: HEMATOCRIT 29.5 % (36-48); MEAN CORPUSCULAR HEMOGLOBIN 27.1 pg (27.0-33.0); MEAN CORPUSCULAR HGB CONC 31.9 g/dL (32.0-36.0); RED BLOOD CELL COUNT(AUTO) 3.47 MIL/uL (4.00-5.50); RED CELL DISTRIBUTION WIDTH 14.6 % (11.0-15.5); WHITE BLOOD COUNT (AUTO) 10.5 K/uL (4.8-10.8)
[2023-11-08 06:00] LABS: ALBUMIN 2.1 g/dL (3.5-5.0); BILIRUBIN,TOTAL 0.3 mg/dL (0.2-1.0); CREATININE 1.1 mg/dL (0.5-1.5); POTASSIUM 3.1 mmol/L (3.5-5.1); TOTAL PROTEIN, SERUM 5.8 g/dL (6.0-8.3)
[2023-11-08] MEDS: INSULIN HUMULIN R 100 UNIT/ML 3ML SQ SCH (06:51)
[2023-11-08] MEDS: POTASSIUM CHLORIDE 20MEQ/100ML 100 ML IV PRN (15:36)
[2023-11-08] MEDS ORDERED: VANCOMYCIN PROTOCOL PER PHARMACY IV SCH (16:30)
[2023-11-08] MEDS: VANCOMYCIN 1G/250ML KIT 250 ML IV SCH (17:17)
[2023-11-08] MEDS: ALBUTEROL 0.083% 2.5 MG/3 ML INH IH PRN (18:50)
[2023-11-09] VITALS (13 sets, daily range): BP systolic 126–162; BP diastolic 50–79; PULSE 65–85; RESP 17–21; O2SAT 94–97
[2023-11-09 05:03] LABS: BASOPHILS # (AUTO) 0.01 K/uL (0.00-0.20); BASOPHILS % (AUTO) 0.1 % (0.0-5.0); HEMATOCRIT 31.2 % (36-48); IMMATURE GRANULOCYTE ABSOLUTE 0.14 K/uL (0-1); LYMPHOCYTES # (AUTO) 0.6 K/uL (1.0-4.8); LYMPHOCYTES % (AUTO) 6.2 % (21.0-51.0); MEAN CORPUSCULAR HEMOGLOBIN 26.8 pg (27.0-33.0); MEAN CORPUSCULAR HGB CONC 31.4 g/dL (32.0-36.0); MEAN CORPUSCULAR VOLUME 85.5 fL (79-99); MONOCYTES # (AUTO) 0.4 K/uL (0.1-1.0); MONOCYTES % (AUTO) 3.7 % (3.0-13.0); NEUTROPHILS # (AUTO) 8.4 K/uL (1.8-7.7); NEUTROPHILS % (AUTO) 88.5 % (40.0-77.0); PLATELET COUNT (AUTO) 293 K/uL (130-400); RED BLOOD CELL COUNT(AUTO) 3.65 MIL/uL (4.00-5.50); RED CELL DISTRIBUTION WIDTH 14.7 % (11.0-15.5); WHITE BLOOD COUNT (AUTO) 9.5 K/uL (4.8-10.8)
[2023-11-09 05:23] LABS: ALBUMIN 2.1 g/dL (3.5-5.0); BILIRUBIN,TOTAL 0.4 mg/dL (0.2-1.0); POTASSIUM 3.7 mmol/L (3.5-5.1); TOTAL PROTEIN, SERUM 5.9 g/dL (6.0-8.3)
[2023-11-09] MEDS: LOSARTAN 50 MG TABLET PO SCH (21:30)
[2023-11-10] VITALS (12 sets, daily range): BP systolic 139–162; BP diastolic 55–82; PULSE 57–85; RESP 18–21; O2SAT 96–98
[2023-11-10 05:18] LABS: HEMATOCRIT 29.7 % (36-48); LYMPHOCYTES # (AUTO) 0.6 K/uL (1.0-4.8); LYMPHOCYTES % (AUTO) 6.4 % (21.0-51.0); MEAN CORPUSCULAR HEMOGLOBIN 26.4 pg (27.0-33.0); MEAN CORPUSCULAR HGB CONC 31.6 g/dL (32.0-36.0); MEAN CORPUSCULAR VOLUME 83.4 fL (79-99); MONOCYTES # (AUTO) 0.3 K/uL (0.1-1.0); NEUTROPHILS # (AUTO) 8.2 K/uL (1.8-7.7); NEUTROPHILS % (AUTO) 89.5 % (40.0-77.0); PLATELET COUNT (AUTO) 282 K/uL (130-400); RED BLOOD CELL COUNT(AUTO) 3.56 MIL/uL (4.00-5.50); RED CELL DISTRIBUTION WIDTH 14.6 % (11.0-15.5); WHITE BLOOD COUNT (AUTO) 9.2 K/uL (4.8-10.8)
[2023-11-10 05:43] LABS: CREATININE 0.9 mg/dL (0.5-1.5); MAGNESIUM 2.1 mg/dL (1.80-2.40); PHOSPHORUS 3.1 mg/dL (2.5-4.9); POTASSIUM 3.1 mmol/L (3.5-5.1)
[2023-11-10] MEDS: SOLU-MEDROL 40MG VIAL IVP SCH (09:06)
[2023-11-10] MEDS: FLUCONAZOLE 100 MG TAB PO SCH (14:49)
[2023-11-10 16:44] LABS: INR 1.31 (0.85-1.15); PROTHROMBIN TIME 14.9 SEC (9.6-11.6)
[2023-11-10 16:46] LABS: PARTIAL THROMBOPLASTIN TIME 27.1 SEC (26.3-35.5)
[2023-11-10] MEDS: VANCOMYCIN 1G/250ML KIT 250 ML IV SCH (21:48)
[2023-11-11] VITALS (15 sets, daily range): BP systolic 124–159; BP diastolic 57–95; PULSE 62–86; RESP 16–20; O2SAT 95–99
[2023-11-11 03:53] LABS: BASOPHILS # (AUTO) 0.01 K/uL (0.00-0.20); BASOPHILS % (AUTO) 0.1 % (0.0-5.0); HEMATOCRIT 30.6 % (36-48); IMMATURE GRANULOCYTE ABSOLUTE 0.06 K/uL (0-1); LYMPHOCYTES # (AUTO) 0.7 K/uL (1.0-4.8); MEAN CORPUSCULAR HEMOGLOBIN 26.9 pg (27.0-33.0); MEAN CORPUSCULAR HGB CONC 31.7 g/dL (32.0-36.0); MONOCYTES # (AUTO) 0.3 K/uL (0.1-1.0); MONOCYTES % (AUTO) 3.5 % (3.0-13.0); NEUTROPHILS # (AUTO) 8.7 K/uL (1.8-7.7); NEUTROPHILS % (AUTO) 88.8 % (40.0-77.0); PLATELET COUNT (AUTO) 259 K/uL (130-400); RED CELL DISTRIBUTION WIDTH 14.6 % (11.0-15.5); WHITE BLOOD COUNT (AUTO) 9.7 K/uL (4.8-10.8)
[2023-11-11 04:14] LABS: CREATININE 0.9 mg/dL (0.5-1.5)
[2023-11-11] MEDS: POTASSIUM CHLORIDE 10% ELIXIR 20 MEQ/15 ML UDCUP PO PRN (06:33)
[2023-11-11] MEDS: VANCOMYCIN 1G/250ML KIT 250 ML IV SCH ×2 (09:32→21:59)
[2023-11-11] MEDS: KCL 20 MEQ ERTAB PO ONE (10:27)
[2023-11-11] MEDS: LATANOPROST 2.5 ML DROPS OP SCH (21:00)
[2023-11-12] VITALS (13 sets, daily range): BP systolic 114–134; BP diastolic 48–86; PULSE 61–80; RESP 16–20; O2SAT 96–99
[2023-11-12 04:01] LABS: BASOPHILS # (AUTO) 0.01 K/uL (0.00-0.20); BASOPHILS % (AUTO) 0.1 % (0.0-5.0); HEMATOCRIT 30.2 % (36-48); IMMATURE GRANULOCYTE ABSOLUTE 0.11 K/uL (0-1); LYMPHOCYTES # (AUTO) 0.6 K/uL (1.0-4.8); LYMPHOCYTES % (AUTO) 6.4 % (21.0-51.0); MEAN CORPUSCULAR HEMOGLOBIN 26.6 pg (27.0-33.0); MEAN CORPUSCULAR HGB CONC 31.5 g/dL (32.0-36.0); MEAN CORPUSCULAR VOLUME 84.6 fL (79-99); MONOCYTES # (AUTO) 0.4 K/uL (0.1-1.0); NEUTROPHILS # (AUTO) 8.4 K/uL (1.8-7.7); NEUTROPHILS % (AUTO) 88.3 % (40.0-77.0); PLATELET COUNT (AUTO) 272 K/uL (130-400); RED BLOOD CELL COUNT(AUTO) 3.57 MIL/uL (4.00-5.50); RED CELL DISTRIBUTION WIDTH 14.9 % (11.0-15.5); WHITE BLOOD COUNT (AUTO) 9.5 K/uL (4.8-10.8)
[2023-11-12 04:19] LABS: CREATININE 0.8 mg/dL (0.5-1.5); POTASSIUM 3.9 mmol/L (3.5-5.1)
[2023-11-12 16:02] LABS: INR 1.35 (0.85-1.15); PROTHROMBIN TIME 15.4 SEC (9.6-11.6)
[2023-11-13] VITALS (14 sets, daily range): BP systolic 108–136; BP diastolic 52–93; PULSE 65–77; RESP 16–21; O2SAT 97–100
[2023-11-13] MEDS: GUAIFENESIN-CODEINE 5 ML SYRUP PO PRN (12:06)
[2023-11-13] MEDS: BENZONATATE 100 MG CAPSULE PO PRN (12:06)
[2023-11-13] MEDS: INSULIN GLARGINE 100 UNITS/ML 10 ML VIAL SQ SCH (19:33)
[2023-11-13] MEDS: 0.9%NACL 10ML VIAL IV SCH (19:37)
[2023-11-14] VITALS (7 sets, daily range): BP systolic 119–136; BP diastolic 53–62; PULSE 65–85; RESP 18–20; O2SAT 99
[2023-11-14 05:36] LABS: BASOPHILS # (AUTO) 0.02 K/uL (0.00-0.20); BASOPHILS % (AUTO) 0.1 % (0.0-5.0); EOSINOPHILS # (AUTO) 0.03 K/uL (0.00-0.70); EOSINOPHILS % (AUTO) 0.2 % (0.0-8.0); HEMATOCRIT 30.6 % (36-48); LYMPHOCYTES # (AUTO) 2.8 K/uL (1.0-4.8); LYMPHOCYTES % (AUTO) 20.3 % (21.0-51.0); MEAN CORPUSCULAR HEMOGLOBIN 26.4 pg (27.0-33.0); MEAN CORPUSCULAR HGB CONC 31.7 g/dL (32.0-36.0); MEAN CORPUSCULAR VOLUME 83.4 fL (79-99); MONOCYTES # (AUTO) 1.5 K/uL (0.1-1.0); MONOCYTES % (AUTO) 10.5 % (3.0-13.0); NEUTROPHILS # (AUTO) 9.5 K/uL (1.8-7.7); NEUTROPHILS % (AUTO) 68.2 % (40.0-77.0); PLATELET COUNT (AUTO) 244 K/uL (130-400); RED BLOOD CELL COUNT(AUTO) 3.67 MIL/uL (4.00-5.50); RED CELL DISTRIBUTION WIDTH 14.7 % (11.0-15.5); WHITE BLOOD COUNT (AUTO) 13.9 K/uL (4.8-10.8)
[2023-11-14 05:50] LABS: CREATININE 0.8 mg/dL (0.5-1.5); MAGNESIUM 1.9 mg/dL (1.80-2.40); PHOSPHORUS 3.2 mg/dL (2.5-4.9); POTASSIUM 3.3 mmol/L (3.5-5.1)
[2023-11-14] MEDS: KCL 20 MEQ ERTAB PO PRN (05:58)
[2023-11-14] MEDS: MAGNESIUM 2GM PREMIX 50ML 50 ML IV PRN (12:57)
[2023-11-14] MEDS: KCL 20 MEQ ERTAB PO ONE (12:58)
[2023-11-14] MEDS ORDERED: MAGNESIUM 2GM PREMIX 50ML 50 ML IV SCH (13:00)
== END 2023-11-14 17:50 | DRG 871 ==
LOC: EDH 18:35 → EDHIP 11-05 01:06 → 4CH 11-05 16:37
PROVIDERS: ADMIT Hospitalist; ATTEND Hospitalist
PROC: 5A09357 Assistance with Respiratory Ventilation, Less than 24 Consecutive Hours, Continuous Positive Airway Pressure (ICD-10-PCS; principal; 2023-11-04)
PROC: 5A09357 Assistance with Respiratory Ventilation, Less than 24 Consecutive Hours, Continuous Positive Airway Pressure (ICD-10-PCS; 2023-11-05)
DX: A41.89 Other specified sepsis (principal); J18.9 Pneumonia, unspecified organism; J96.01 Acute respiratory failure with hypoxia; J45.901 Unspecified asthma with (acute) exacerbation; J44.1 Chronic obstructive pulmonary disease with (acute) exacerbation; E46 Unspecified protein-calorie malnutrition; B37.0 Candidal stomatitis; E87.1 Hypo-osmolality and hyponatremia; F03.94 Unspecified dementia, unspecified severity, with anxiety; G93.40 Encephalopathy, unspecified; J44.0 Chronic obstructive pulmonary disease with (acute) lower respiratory infection; I50.9 Heart failure, unspecified; I11.0 Hypertensive heart disease with heart failure; B95.7 Other staphylococcus as the cause of diseases classified elsewhere; E04.2 Nontoxic multinodular goiter; E11.649 Type 2 diabetes mellitus with hypoglycemia without coma; E11.65 Type 2 diabetes mellitus with hyperglycemia; E66.9 Obesity, unspecified; E78.5 Hyperlipidemia, unspecified; E86.0 Dehydration; I48.91 Unspecified atrial fibrillation; F32.A Depression, unspecified; T38.0X5A Adverse effect of glucocorticoids and synthetic analogues, initial encounter; Y92.89 Other specified places as the place of occurrence of the external cause; Z59.7 Insufficient social insurance and welfare support; Z95.0 Presence of cardiac pacemaker; Z86.718 Personal history of other venous thrombosis and embolism; Z86.711 Personal history of pulmonary embolism; Z79.01 Long term (current) use of anticoagulants; Z79.84 Long term (current) use of oral hypoglycemic drugs; Z83.3 Family history of diabetes mellitus; Z90.710 Acquired absence of both cervix and uterus; Z88.8 Allergy status to other drugs, medicaments and biological substances; Z68.30 Body mass index [BMI] 30.0-30.9, adult
CPT/HCPCS: 36415; 36600; 70490; 71045; 71250; 74230; 76536; 80048; 80053; 80202; 81001; 82306; 82607; 82803; 82948; 83036; 83540; 83550; 83605; 83735; 83880; 84100; 84145; 84439; 84443; 84445; 84481; 84484; 85025; 85027; 85378; 85610; 85730; 87040; 87077; 87186; 87426; 87804; 92610; 92611; 93005; 93306; 94640; 94660; 94664; 94667; 94668; 96365; 96375; C1894; G0378; J0456; J0696; J1100; J1644; J1815; J1885; J1940; J1956; J2543; J2920; J3370; J3475; J3480; J3490; Q0163; C1750